=== PATIENT | female | born 1975 | race Caucasian/White ===

== ENCOUNTER → 2017-07-02 13:30 | Outpatient (CLI) | payer MEDICAID, SELFPAY ==
[2017-07-02 13:58] LABS: Basophils # 0.1 K/mm3 (0-0.2); Basophils % 0.8 % (0.1-2.0); Eosinophils # 0.1 K/mm3 (0.0-0.4); Eosinophils % 1.2 % (0.1-12.0); Hemoglobin 15.2 g/dL (12.2-16.2); Lymphocytes # 4.3 K/mm3 (0.7-4.5); Mean Corpuscular HGB Conc 32.3 g/dL (31.8-35.4); Mean Corpuscular Hemoglobin 30.9 pg (27.0-31.2); Mean Corpuscular Volume 95.5 fl (81-99); Mean Platelet Volume 8.8 fl (7.4-10.4); Monocytes # 0.4 K/mm3 (0.1-1.0); Monocytes % 4.6 % (1.7-9.3); Neutrophils # 4.8 K/mm3 (1.8-7.8); Neutrophils % 49.4 % (37.0-80.0); Platelet Count 269 K/mm3 (142-424); Red Blood Count 4.93 M/mm3 (4.20-5.40); Red Cell Distribution Width 13.4 % (11.5-17.5); White Blood Count 9.7 K/mm3 (4.8-10.8)
[2017-07-02 15:13] LABS: Alanine Aminotransferase 15 U/L (12-78); Albumin Level 4.1 gm/dL (3.4-5.0); Albumin/Globulin Ratio 1.3 (1.1-1.8); Alkaline Phosphatase 117 U/L (46-116); Anion Gap 14.1 mEq/L (5-15); Aspartate Amino Transferase 12 U/L (15-37); Bilirubin,Total 0.3 mg/dL (0.2-1.0); Blood Urea Nitrogen 6 mg/dL (7-18); Calcium 9.7 mg/dL (8.5-10.1); Carbon Dioxide 28 mmol/L (21.0-32.0); Chloride 102 mmol/L (98-107); Chol/HDL Ratio 5.4 (1-3.5); Cholesterol 189 mg/dL (140-200); Creatinine,Serum 0.81 mg/dL (0.55-1.02); Estimated Glomerular Filt Rate 78 ml/min (>60); GFR (African American) 95 ML/MIN (>60); Globulin 3.2 gm/dl (1.3-3.2); Glucose 84 mg/dL (74-106); HDL Cholesterol 35 mg/dL (29-89); LDL Cholesterol 124 mg/dL (0-130); Potassium 4.1 mmoL/L (3.5-5.1); Sodium 140 mmol/L (136-145); Total Protein,Serum 7.3 gm/dL (6.4-8.2); Triglycerides 152 mg/dL (30-200); VLDL Cholesterol 30 mg/dL (0-40)
== END ==
PROVIDERS: Visit Provider Nurse Practitioner Family
DX: Z00.00 Encounter for general adult medical examination without abnormal findings (principal); D45 Polycythemia vera
CPT/HCPCS: 36415; 80053; 80061; 85025

== ENCOUNTER → 2017-07-10 08:42 | Outpatient (CLI) | payer MEDICAID, SELFPAY ==
--- NOTE | 2017-07-10 09:00 | MM_ITS ---
MM Dig screening mamm BI w/CAD CAD Screening COMPARISON: None, this is baseline INDICATION: There is a history of breast cancer in patient's paternal grandmother. TECHNIQUE: Standard CC and MLO images were obtained. R2 CAD reviewed. FINDINGS: Prominent diffuse heterogenic fibroglandular densities are seen in both breast somewhat lessening the sensitivity of mammography. There is no suspicious lesion and there are no suspicious microcalcifications. IMPRESSION: Diffusely dense parenchymal pattern with no suspicious lesion seen recommend yearly follow-up BI-RADS Category: 1 Negative RECOMMENDED FOLLOW-UP: 1YR - 1 YEAR FOLLOW-UP (A letter has been sent to the patient regarding results of the study.)
== END ==
PROVIDERS: Family Provider Internal Medicine Adolescent Medicine; PCP Internal Medicine Adolescent Medicine; Visit Provider Nurse Practitioner Family
DX: Z12.31 Encounter for screening mammogram for malignant neoplasm of breast (principal)
CPT/HCPCS: 77067

== ENCOUNTER → 2018-08-12 15:51 | Outpatient (CLI) | payer MEDICAID, SELFPAY ==
[2018-08-12 16:09] LABS: Basophils # 0.1 K/mm3 (0-0.2); Basophils % 0.6 % (0.1-2.0); Eosinophils # 0.1 K/mm3 (0.0-0.4); Eosinophils % 1.1 % (0.1-12.0); Hematocrit 43.6 % (37.0-47.0); Hemoglobin 14.1 g/dL (12.2-16.2); Lymphocytes # 3.9 K/mm3 (0.7-4.5); Lymphocytes % 35.6 % (10-50); Mean Corpuscular HGB Conc 32.3 g/dL (31.8-35.4); Mean Corpuscular Hemoglobin 31.2 pg (27.0-31.2); Mean Corpuscular Volume 96.6 fl (81-99); Mean Platelet Volume 8.5 fl (7.4-10.4); Monocytes # 0.6 K/mm3 (0.1-1.0); Monocytes % 5.2 % (1.7-9.3); Neutrophils # 6.3 K/mm3 (1.8-7.8); Neutrophils % 57.5 % (37.0-80.0); Platelet Count 293 K/mm3 (142-424); Red Blood Count 4.51 M/mm3 (4.20-5.40); Red Cell Distribution Width 13.6 % (11.5-17.5); White Blood Count 10.9 K/mm3 (4.8-10.8)
[2018-08-12 17:13] LABS: Alanine Aminotransferase 45 U/L (12-78); Albumin Level 3.6 gm/dL (3.4-5.0); Albumin/Globulin Ratio 1.2 (1.1-1.8); Alkaline Phosphatase 110 U/L (46-116); Anion Gap 13.3 mEq/L (5-15); Aspartate Amino Transferase 26 U/L (15-37); Bilirubin,Total 0.2 mg/dL (0.2-1.0); Blood Urea Nitrogen 7 mg/dL (7-18); Calcium 9.3 mg/dL (8.5-10.1); Carbon Dioxide 27 mmol/L (21.0-32.0); Chloride 102 mmol/L (98-107); Chol/HDL Ratio 6.3 (1-3.5); Cholesterol 228 mg/dL (140-200); Creatinine,Serum 0.83 mg/dL (0.55-1.02); Estimated Glomerular Filt Rate 76 ml/min (>60); GFR (African American) 92 ML/MIN (>60); Globulin 3.1 gm/dl (1.3-3.2); Glucose 82 mg/dL (74-106); HDL Cholesterol 36 mg/dL (29-89); LDL Cholesterol 158 mg/dL (0-130); Potassium 4.3 mmoL/L (3.5-5.1); Sodium 138 mmol/L (136-145); Total Protein,Serum 6.7 gm/dL (6.4-8.2); Triglycerides 171 mg/dL (30-200); VLDL Cholesterol 34 mg/dL (0-40)
== END ==
PROVIDERS: Visit Provider Nurse Practitioner Family
DX: Z00.00 Encounter for general adult medical examination without abnormal findings (principal); D45 Polycythemia vera; F17.200 Nicotine dependence, unspecified, uncomplicated
CPT/HCPCS: 36415; 80053; 80061; 85025

== ENCOUNTER → 2018-09-14 12:43 | Outpatient (CLI) | payer MEDICAID, SELFPAY ==
[2018-09-14 13:07] LABS: Basophils # 0.1 K/mm3 (0-0.2); Basophils % 0.5 % (0.1-2.0); Eosinophils # 0.1 K/mm3 (0.0-0.4); Eosinophils % 0.5 % (0.1-12.0); Hematocrit 43.3 % (37.0-47.0); Hemoglobin 13.9 g/dL (12.2-16.2); Lymphocytes % 25.8 % (10-50); Mean Corpuscular Volume 96.8 fl (81-99); Mean Platelet Volume 8.4 fl (7.4-10.4); Monocytes # 0.6 K/mm3 (0.1-1.0); Monocytes % 5.1 % (1.7-9.3); Neutrophils % 68.1 % (37.0-80.0); Platelet Count 266 K/mm3 (142-424); Red Blood Count 4.47 M/mm3 (4.20-5.40); Red Cell Distribution Width 13.5 % (11.5-17.5); White Blood Count 11.8 K/mm3 (4.8-10.8)
[2018-09-14 14:36] LABS: Anion Gap 13.9 mEq/L (5-15); Blood Urea Nitrogen 11 mg/dL (7-18); Carbon Dioxide 24 mmol/L (21.0-32.0); Chloride 105 mmol/L (98-107); Creatinine,Serum 0.94 mg/dL (0.55-1.02); Estimated Glomerular Filt Rate 66 ml/min (>60); GFR (African American) 79 ML/MIN (>60); Glucose 79 mg/dL (74-106); Potassium 3.9 mmoL/L (3.5-5.1); Sodium 139 mmol/L (136-145)
== END ==
PROVIDERS: Visit Provider Otolaryngology
DX: J34.2 Deviated nasal septum (principal); S02.2XXA Fracture of nasal bones, initial encounter for closed fracture
CPT/HCPCS: 36415; 80048; 85025; 93005

== ENCOUNTER → 2018-09-15 16:13 | Outpatient (CLI) | payer MEDICAID, SELFPAY ==
--- NOTE | 2018-09-15 16:15 | MM_ITS ---
MM Dig screening mamm BI w/CAD CAD Screening COMPARISON: Digital mammograms with CAD 07/10/2017 INDICATION: There is no personal or family history of breast cancer TECHNIQUE: Standard CC and MLO images were obtained. R2 CAD reviewed. FINDINGS: Prominent heterogenic fibroglandular densities are seen throughout both breasts. The findings are bilateral and symmetrical. There is no suspicious lesion and there are no suspicious microcalcifications. IMPRESSION: Moderately and diffusely dense parenchymal pattern with no suspicious lesion seen BI-RADS Category: 1 Negative RECOMMENDED FOLLOW-UP: 1YR - 1 YEAR FOLLOW-UP (A letter has been sent to the patient regarding results of the study.)
== END ==
PROVIDERS: PCP Nurse Practitioner Family; Visit Provider Nurse Practitioner Family
DX: Z12.31 Encounter for screening mammogram for malignant neoplasm of breast (principal)
CPT/HCPCS: 77067

== ENCOUNTER → 2018-09-23 09:39 | Outpatient (CLI) | payer MEDICAID, SELFPAY ==
--- NOTE | 2018-09-23 09:40 | FL_ITS ---
FL upper GI w air HISTORY: Pain, dysphasia ITS.REASON: dysphagia ORDERING PHYSICIAN: Wang Monteiro MD PATIENT AGE: 42 years Comparison: None FINDINGS: The esophagus, stomach, and duodenum have an unremarkable appearance. There is no evidence of hiatal hernia. No ulcer or mass evident. No mucosal abnormalities apparent. There is normal peristalsis. The duodenal C-loop is nondisplaced.. There is mild gastroesophageal reflux noted. There is mild prominence of the gastric rugal folds nonspecific but may be seen with gastritis FLUOROSCOPY TIME : 57 seconds. IMPRESSION: 1. Prominent gastric rugal folds which may be seen with gastritis. 2. Mild GE reflux
== END ==
PROVIDERS: PCP Internal Medicine Adolescent Medicine; Visit Provider Surgery
DX: R10.13 Epigastric pain (principal); R12 Heartburn; R13.10 Dysphagia, unspecified
CPT/HCPCS: 74247

== ENCOUNTER 2019-10-04 07:47 | Emergency (ER) | payer OTHER, SELFPAY ==
[2019-10-04 07:57] VITALS: BP 146/82; PULSE 80; RESP 18; O2SAT 100; BMI 26.5
--- NOTE | 2019-10-04 08:08 | HMH.EDGENADL ---
ED Disposition Clinical Impression: Muscle strain Disposition: Home, Self-Care Condition on Discharge: Good Instructions: DI for Musculoskeletal Pain Referrals: Dewayne Jeffery MD [Primary Care Provider] - 7-14 days - Critical Care Critical Care Time: No Attestation: On 10/04/19, the high probability of a clinically significant, sudden or life threatening deterioration of the following system(s) required my full and direct attention, intervention and personal management. The time I documented below is in addition to time spent performing reported procedures but includes the following listed in this critical care notation. Medical Decision Making - Medical Records Medical records reviewed: Yes: I reviewed the patient's medical records. - Srikanth Inquiry Pt receiving controlled substance: No Vital Signs: 10/04/19 07:57 Pulse Rate [Radial] 80 Respiratory Rate 18 Blood Pressure [Right Arm] 146/82 H Blood Pressure Mean [Right Arm] 103 Blood Pressure Source [Right Arm] Automatic Cuff Blood Pressure Position [Right Arm] Sitting 02 Sat by Pulse Oximetry 100 Oxygen Delivery Method Room Air Medical Decision Narrative: Patient with muscle strain after utilizing the mop at work a few days ago. Recommended symptomatic treatment including Tylenol, ibuprofen. She has a follow-up appointment with her primary care provider early next week and I encouraged her to return for any worsening symptoms. She is not taking any blood thinners and has no flank pain, unlikely hematoma or significant muscular bleed. While she reports tenderness in her abdomen, she is nontender on exam. No McBurney's point tenderness. She denies any vaginal or urinary symptoms that would suggest PID, UTI, TOA. Discharged home. General Adult HPI - General Chief complaint: PAIN Stated complaint: right sided pelvic pain Time Seen by Provider: 10/04/19 08:08 Mode of Arrival: Ambulatory Source of Information: Patient Limitations: No Limitations Description of Symptoms (Recalled from ER Triage Doc. by RN): Per Patient while at work she was mopping the floor and pushed down on the handle and now has right sided muscle pain. - History of Present Illness HPI narrative: This is a 43-year-old female who presents to the emergency department for evaluation of right-sided mid to lower abdominal pain for the last several days. Pain is worse with movement, better with lying still. She states that she was mopping at work a few days ago, pulled down on the mop handle and subsequently had right mid to lower abdominal pain. She has been trying to use Tylenol and ibuprofen with some relief of symptoms. She denies any dysuria, vaginal discharge or flank pain. No hematuria. She does not take any blood thinners, does take a baby aspirin daily. No nausea, vomiting or fever. - Related Data Home Medications Medication Instructions Recorded Confirmed Aspirin 81 mg PO DAILY 05/29/17 10/12/18 Rabeprazole Sodium 20 mg PO DAILY 09/15/18 10/11/18 Previous Rx's Medication Instructions Recorded ciprofloxacin 0.3 %-dexamethasone 4 drp OTIC BID 98 Days #7.5 ml 08/30/18 0.1 % ear drops,suspension Allergies Allergy/AdvReac Type Severity Reaction Status Date / Time No Known Allergies Allergy Verified 10/11/18 13:53 [facility] History - Hepatitis A Screen Drug use history?: No High risk sexual behaviors?: No History of sexually transmitted infection?: No Currently employed?: No Childcare worker?: No Do you have indoor plumbing?: Yes Do you have electricity?: Yes Attestation statement:: This patient has been screened for Hepatitis A risk factors. I have reviewed the patient's past medical history: Yes Medical History: Reports:: Asthma, Chronic Obstructive Pulmonary Disease (COPD), Gastroesophageal Reflux Disease(GERD) Denies:: Cancer, Diabetes Mellitus Type 1, Diabetes Mellitus Type 2, Internal Pacemaker, Lung Disease, MRSA, Seizures Other Medical
[2019-10-04 08:15] VITALS: BP 146/82; PULSE 80; RESP 18; TEMP 36.7; O2SAT 100
== END 2019-10-04 08:17 | disposition home or self-care (01) ==
PROVIDERS: Emergency Provider Emergency Medicine; PCP Internal Medicine Adolescent Medicine
DX: S39.012A Strain of muscle, fascia and tendon of lower back, initial encounter (principal); X50.3XXA Overexertion from repetitive movements, initial encounter; Y92.89 Other specified places as the place of occurrence of the external cause; J44.9 Chronic obstructive pulmonary disease, unspecified; K21.9 Gastro-esophageal reflux disease without esophagitis; Z90.09 Acquired absence of other part of head and neck; Z87.891 Personal history of nicotine dependence
CPT/HCPCS: 99281

== ENCOUNTER → 2019-10-11 17:08 | Outpatient (CLI) | payer OTHER, SELFPAY ==
[2019-10-11 17:50] LABS: Basophils # 0.1 K/mm3 (0-0.2); Basophils % 0.8 % (0.1-2.0); Eosinophils # 0.1 K/mm3 (0.0-0.4); Eosinophils % 0.9 % (0.1-12.0); Hematocrit 39.5 % (37.0-47.0); Hemoglobin 13.3 g/dL (12.2-16.2); Lymphocytes # 3.6 K/mm3 (0.7-4.5); Lymphocytes % 31.9 % (10-50); Mean Corpuscular HGB Conc 33.8 g/dL (31.8-35.4); Mean Corpuscular Volume 91.8 fl (81-99); Mean Platelet Volume 8.8 fl (7.4-10.4); Monocytes # 0.6 K/mm3 (0.1-1.0); Monocytes % 5.2 % (1.7-9.3); Neutrophils # 6.9 K/mm3 (1.8-7.8); Neutrophils % 61.2 % (37.0-80.0); Platelet Count 248 K/mm3 (142-424); Red Cell Distribution Width 13.8 % (11.5-17.5); White Blood Count 11.3 K/mm3 (4.8-10.8)
[2019-10-11 20:22] LABS: Alanine Aminotransferase 16 U/L (12-78); Albumin Level 4.5 g/dl (3.5-5.0); Albumin/Globulin Ratio 1.7 (1.1-1.8); Alkaline Phosphatase 98 U/L (38-126); Anion Gap 15.2 mEq/L (5-15); Aspartate Amino Transferase 24 U/L (14-36); Bilirubin,Total 0.2 mg/dl (0.2-1.3); Blood Urea Nitrogen 9 mg/dl (7-17); Calcium 9.9 mg/dl (8.4-10.2); Carbon Dioxide 27 mmol/L (22.0-30.0); Chloride 100 mmol/L (98-107); Chol/HDL Ratio 3.4 (1-3.5); Cholesterol 162 mg/dl (140-200); Estimated Glomerular Filt Rate 79 ml/min (>60); GFR (African American) 95 ML/MIN (>60); Globulin 2.6 g/dL (1.3-3.2); Glucose 91 mg/dl (74-100); HDL Cholesterol 48 mg/dl (40-60); Potassium 4.2 mmoL/L (3.5-5.1); Sodium 138 mmol/L (136-145); Total Protein,Serum 7.1 g/dl (6.3-8.2); Triglycerides 119 mg/dl (30-150); VLDL Cholesterol 24 mg/dL (0-40)
[2019-10-11 20:33] LABS: Direct LDL Cholesterol 74.71 mg/dL (100-129)
[2019-10-11 20:44] LABS: Free Thyroxine Index 2.9 ug/dL (5.93-13.13); T4 (Thyroxine) 8.6 ug/dl (5.53-11.0); Triiodothryronine (T3) Uptake 34 % (23.5-40.5)
[2019-10-11 20:58] LABS: Thyroid Stimulating Hormone 3.16 uIU/mL (0.465-4.68)
[2019-10-13 17:27] LABS: Estradiol 49.9 pg/mL (.); FSH 12.1 mIU/mL (.); LH 7.6 mIU/mL (.)
== END ==
PROVIDERS: Visit Provider Nurse Practitioner Obstetrics & Gynecology
DX: Z01.419 Encounter for gynecological examination (general) (routine) without abnormal findings (principal); R53.82 Chronic fatigue, unspecified
CPT/HCPCS: 36415; 80053; 80061; 82533; 82670; 83001; 83002; 84436; 84443; 84479; 85025

== ENCOUNTER → 2019-11-07 09:36 | Outpatient (CLI) | payer OTHER, SELFPAY ==
--- NOTE | 2019-11-07 09:40 | MM_ITS ---
PROCEDURE: MM DIG SCREENING MAMM BI W/CAD Digital Breast Tomosynthesis Included CLINICAL INDICATION: screening xmg History of breast cancer patient's paternal grandmother. COMPARISON: MG SCBI MM Dig screening mamm BI w/CAD from 07/10/2017 MG DIG MAMM-SCREEN JULIAN from 09/15/2018 TECHNIQUE: Standard CC and MLO images and 3D Tomosynthesis was obtained. R2 CAD reviewed. FINDINGS: Cysts and somewhat heterogenic fibroglandular densities are seen throughout both breasts. Raffy images are most helpful this type of dense breast parenchyma. There is a dominant well-defined spherical lesions central portion right breast with relatively smooth borders likely representing a cyst. There is a similar but smaller lesion just deep to the nipple right breast. Recommend the patient return for ultrasound for additional evaluation. IMPRESSION: Diffusely dense parenchymal pattern with possible new lesions right breast BI-RAD Category: 0 Need Additional Imaging Evaluation FOLLOW-UP: IMM Immediate Follow-up Recommended (A letter has been sent to the patient regarding results of the study.) Dictated by: Dr. Christian Mendiola MD 11/09/2019 08:53 Dr. Christian Mendiola MD in [place] 11/09/2019 08:53
== END ==
PROVIDERS: PCP Internal Medicine Adolescent Medicine; Visit Provider Nurse Practitioner Obstetrics & Gynecology
DX: Z12.31 Encounter for screening mammogram for malignant neoplasm of breast (principal)
CPT/HCPCS: 77063; 77067

== ENCOUNTER → 2019-11-22 10:52 | Outpatient (CLI) | payer OTHER, SELFPAY ==
[2019-11-23 11:12] LABS: Hep A Ab, IgM Negative (Negative); Hepatitis B Core Antibody IgM Negative (Negative); Hepatitis B Surface Antigen Negative (Negative)
[2019-11-23 13:20] LABS: HIV Screen 4th Generation wRfx Non Reactive (Non Reactive); HSV 1 IgG, Type Spec <0.91 index (0.00-0.90); HSV 2 IgG, Type Spec <0.91 index (0.00-0.90); Hepatitis C Antibody <0.1 s/co ratio (0.0-0.9)
[2019-11-23 15:50] LABS: Rapid Plasma Reagin Ab Titer Non Reactive (NonRea<1:1)
[2019-11-25 09:35] LABS: Neisseria gonorrhoeae, NAA Negative (Negative)
== END ==
PROVIDERS: Visit Provider Nurse Practitioner Obstetrics & Gynecology
DX: Z72.51 High risk heterosexual behavior (principal)
CPT/HCPCS: 36415; 80074; 86592; 86695; 86703; 86790; 87491; 87591; G0432

== ENCOUNTER → 2019-11-23 15:15 | Outpatient (CLI) | payer OTHER, SELFPAY ==
--- NOTE | 2019-11-23 15:15 | US_ITS ---
PROCEDURE: US BREAST RT COMPLETE CLINICAL INDICATION: Abnormal findings of the right breaston recent xmg COMPARISON: MG DIG MAMM-SCREEN JULIAN from 09/15/2018 MG MM DIG SCREENING MAMM BI W/CAD from 11/07/2019 FINDINGS: At 6 o'clock there is a 5 mm cyst. At 10 o'clock there is a 9 mm cyst. Also at 10 o'clock there is a 2.5 by 2 x 0.8 cm cyst. At 11 o'clock near the nipple there is a 2 cm cyst. No solid lesions are evident. IMPRESSION: There are multiple cysts in the right breast which likely correspond to the mammographic abnormality. Recommend six-month follow-up ultrasound and mammogram to confirm stability. BI-RADS category 3 probably benign. Recommend six-month mammographic and sonographic follow-up Dictated by: Gary Joe MD 11/28/2019 10:13 Gary Joe MD in [place] 11/28/2019 10:13
[2019-11-23 16:29] LABS: Basophils # 0.1 K/mm3 (0-0.2); Basophils % 0.7 % (0.1-2.0); Eosinophils # 0.1 K/mm3 (0.0-0.4); Eosinophils % 1.1 % (0.1-12.0); Hematocrit 42.4 % (37.0-47.0); Hemoglobin 13.5 g/dL (12.2-16.2); Lymphocytes # 3.6 K/mm3 (0.7-4.5); Lymphocytes % 38.3 % (10-50); Mean Corpuscular HGB Conc 31.9 g/dL (31.8-35.4); Mean Corpuscular Volume 94.3 fl (81-99); Mean Platelet Volume 8.5 fl (7.4-10.4); Monocytes # 0.5 K/mm3 (0.1-1.0); Monocytes % 5.3 % (1.7-9.3); Neutrophils # 5.1 K/mm3 (1.8-7.8); Neutrophils % 54.5 % (37.0-80.0); Platelet Count 234 K/mm3 (142-424); Red Cell Distribution Width 13.7 % (11.5-17.5); White Blood Count 9.3 K/mm3 (4.8-10.8)
[2019-11-23 17:12] LABS: Chloride 103 mmol/L (98-107); Potassium 4.4 mmoL/L (3.5-5.1); Sodium 138 mmol/L (136-145)
[2019-11-23 17:15] LABS: Anion Gap 12.4 mEq/L (5-15); Blood Urea Nitrogen 13 mg/dl (7-17); Calcium 9.9 mg/dl (8.4-10.2); Carbon Dioxide 27 mmol/L (22.0-30.0); Estimated Glomerular Filt Rate 78 ml/min (>60); GFR (African American) 95 ML/MIN (>60); Glucose 90 mg/dl (74-100)
[2019-11-23 17:29] LABS: Coronavirus 19 IgG Antibody Negative (Negative); Coronavirus 19 IgM Antibody Negative (Negative)
[2019-11-23 18:56] LABS: HCG Qualitative, Serum Negative (Negative)
== END ==
PROVIDERS: PCP Internal Medicine Adolescent Medicine; Visit Provider Nurse Practitioner Obstetrics & Gynecology
DX: Z01.89 Encounter for other specified special examinations (principal); N89.8 Other specified noninflammatory disorders of vagina; R92.8 Other abnormal and inconclusive findings on diagnostic imaging of breast
CPT/HCPCS: 36415; 76641; 80048; 84703; 85025; 86328

== ENCOUNTER 2019-11-25 06:56 | Day surgery (SDC) | payer OTHER, SELFPAY ==
[2019-11-23 10:50] VITALS: BMI 26.3
[2019-11-25] VITALS (9 sets, daily range): BP systolic 111–122; BP diastolic 73–86; PULSE 59–76; RESP 12–20; TEMP 36.1–36.6; O2SAT 97–99
--- NOTE | 2019-11-25 09:36 | P.PN_ITS ---
[facility] Anesthesia Checklist - Structural Data Admitted From: Home Planned Operative Procedure/s: excision vaginal skin tags Consent for Planned Operative Procedure(s) Verified: Yes - Additional verifications Anesthesia Reactions: No Hx Blood Transfusions: No Blood Transfusion Reaction: No - Airway Assessment C-Spine Mobility Assessed: Yes TMJ Mobility Assessed: Yes Dentition: Poor Dentition - Neurological Assessment Level of Consciousness: Awake, Alert, Appropriate - Anesthesia Plan Anesthesia Risk discussed: Yes Anesthesia Plan: Verified ASA Class: II Anesthesia Type: General [facility] History I have reviewed the patient's past medical history: Yes Medical History: Reports:: Asthma, Chronic Obstructive Pulmonary Disease (COPD), Gastroesophageal Reflux Disease(GERD) Denies:: Cancer, Diabetes Mellitus Type 1, Diabetes Mellitus Type 2, Internal Pacemaker, Lung Disease, MRSA, Seizures *Have you ever received a pneumonia vaccine?: No *Have you received a flu vaccine this season?: No Other Medical History: Reports: Other. Denies: Blood Transfusion Reaction Anesthesia experience/problems:: none Laterality Cases: Bilateral: Myringotomy (Ear Tubes), Tonsillectomy, Other Other Surgeries: Yes: Cholecystectomy, Diagnostic Lap, Hysterectomy-Partial, Other. No: Pacemaker Amputation: No Fractures: No - *Social History Last grade of school completed: GED Smoking Status: Never smoker Tobacco Type: cigarettes Alcohol Intake: never Alcohol Intake Frequency:: other Substance Use Type: denies use *Occupational Status:: employed Housing: house Household Members: family *Travel in the last 8 weeks: None Family Hx:: Hypertension, Hyperlipidemia
--- NOTE | 2019-11-25 09:41 | HMH.OPNOTE ---
Date of procedure: 11/25/19 Pre-op Diagnosis:: Vaginal skin tags Post-op Diagnosis:: Vaginal skin tags Procedure performed:: Removal of inflamed vaginal skin tags Surgeon:: Ramesh Tolentino MD COPYRIGHT CLERK:: Michael Lew Anesthesia: LMA Estimated blood loss (mL): 10 Clinical Note:: She is a 44-year-old lady who complains of extremely tender vaginal skin tags. They hurt during intercourse. On examination they were quite firm consistent with inflammatory scarred skin tags from the hymenal ring. After having discussed the risks and benefits we elected to remove these. Operative findings:: She had a number of firm small nodules Operative note:: She was taken the operating room where LMA anesthesia was found be adequate. She is prepped and draped in the normal sterile fashion lithotomy position. I grasped the posterior vagina with 2 Allis clamps and was able to open up the posterior vaginal orifice. Then using small pickups with teeth I was able to grasp the nodules and using cautery on cut mode I removed approximately 10 small 1 to 2 mm firm skin nodules. She did not require any sutures. I then injected approximately 10 cc of 0.25% ropivacaine subcutaneously in the posterior aspect of the vagina. She tolerated procedure well and was taken recovery room in excellent condition. All sponge, instrument counts were correct. The estimated blood loss was approximately 10 cc. Condition: stable Disposition: PACU Specimens:: None since these were just vaginal skin tags. Complications:: None
--- NOTE | 2019-11-25 09:50 | P.PN_ITS ---
[facility] Anesthesia Record Part I Intake, IV Amount: 1,200 Estimated blood loss (mL): 0 Urine output (mL): 0 Blood Pressure: 121/86 SaO2: 97 Pulse Rate: 73 Respiratory Rate: 12 Temperature: 97.5 F Patient is:: Drowsy, Oral/Nasal airway Stable to PACU at:: 09:50
--- NOTE | 2019-11-25 14:10 | HMH.ANESII ---
[facility] Anesthesia Record Part II Discharge Time: 10:20 Destination: [facility] PACU nurse assessment reviewed?: Yes Patient Condition:: Good Anesthesia Complications:: None Swallowing reflex intact?: Yes Cyanosis?: Yes Blood Pressure: 116/79 Pulse Rate: 70 Temperature: 97.9 F Mental Status: Alert & Oriented Pain level:: 0 Nausea and/or vomitting:: None Intake, IV Amount: 1,000
== END 2019-11-25 10:59 | disposition home or self-care (01) ==
LOC: OR 06:57
PROVIDERS: PCP Internal Medicine Adolescent Medicine; Visit Provider Nurse Practitioner Obstetrics & Gynecology
PROC: (CPT 11200; principal; 2019-11-25 09:00)
DX: L91.8 Other hypertrophic disorders of the skin (principal); N90.89 Other specified noninflammatory disorders of vulva and perineum; Z79.82 Long term (current) use of aspirin; Z79.899 Other long term (current) drug therapy; J44.9 Chronic obstructive pulmonary disease, unspecified; K21.9 Gastro-esophageal reflux disease without esophagitis; Z82.49 Family history of ischemic heart disease and other diseases of the circulatory system; Z83.438 Family history of other disorder of lipoprotein metabolism and other lipidemia
CPT/HCPCS: 11200; 96374; J2405

== ENCOUNTER → 2020-04-21 08:17 | Outpatient (CLI) | payer OTHER, SELFPAY ==
--- NOTE | 2020-04-21 | XR_ITS ---
PROCEDURE: XR FOOT WT BEARING RT 3V CLINICAL INDICATION: BUNION OF RT FOOT COMPARISON: No exams were available for comparison FINDINGS: No fracture or dislocation. No lytic or blastic change. There is normal mineralization. There are mild hypertrophic changes at distal aspect of the 2nd metatarsal consistent with bunion formation. There is flattening of the head of 3rd metatarsal consistent with avascular necrosis. Other findings:None. IMPRESSION: 1. Bunion formation at the distal 1st metatarsal. 2. 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
--- NOTE | 2020-04-21 | XR_ITS ---
PROCEDURE: XR FOOT WT BEARING LT 3V CLINICAL INDICATION: BUNION OF LEFT FOOT COMPARISON: No exams were available for comparison FINDINGS: Hallux valgus with osteoarthritis of the 1st MTP joint and bunion formation at the distal aspect of the 1st metatarsal. No fracture or dislocation. Normal alignment. Hammertoe deformity noted of the 2nd toe. Other findings:None. IMPRESSION: Hallux valgus Hammertoe 2nd toe Dictated by: Gary Joe MD 04/21/2020 10:16 Gary Joe MD in [place] 04/21/2020 10:16
[2020-04-21 08:22] LABS: Microscopic, Urine URINE MICROSCOPIC (MICROSCOPIC)
[2020-04-21 08:34] LABS: Basophils # 0.1 K/mm3 (0-0.2); Basophils % 1.1 % (0.1-2.0); Eosinophils # 0.2 K/mm3 (0.0-0.4); Eosinophils % 2.9 % (0.1-12.0); Hematocrit 42.4 % (37.0-47.0); Hemoglobin 13.8 g/dL (12.2-16.2); Lymphocytes # 2.9 K/mm3 (0.7-4.5); Lymphocytes % 36.9 % (10-50); Mean Corpuscular HGB Conc 32.6 g/dL (31.8-35.4); Mean Corpuscular Hemoglobin 30.9 pg (27.0-31.2); Mean Corpuscular Volume 94.9 fl (81-99); Mean Platelet Volume 8.8 fl (7.4-10.4); Monocytes # 0.4 K/mm3 (0.1-1.0); Monocytes % 5.1 % (1.7-9.3); Neutrophils # 4.2 K/mm3 (1.8-7.8); Platelet Count 265 K/mm3 (142-424); Red Blood Count 4.47 M/mm3 (4.20-5.40); Red Cell Distribution Width 13.5 % (11.5-17.5); White Blood Count 7.8 K/mm3 (4.8-10.8)
[2020-04-21 08:41] LABS: Appearance,Urine CLEAR (Clear); Bilirubin,Urine Negative (Negative); Blood, Urine Negative (Negative); Color,Urine YELLOW (Yellow); Glucose,Urine (UA) Negative (Negative); Ketones,Urine Negative (Negative); Leukocyte Esterase,Urine Negative (Negative); Nitrate,Urine Negative (Negative); Protein,Urine Negative (Negative); Urobilinogen,Urine 0.2 EU/dl (0.2)
[2020-04-21 09:06] LABS: Squamous Epithelial Cell,Urine Occasional #/hpf (0-5)
[2020-04-21 09:10] LABS: Alanine Aminotransferase 16 U/L (12-78); Albumin Level 4.1 g/dl (3.5-5.0); Albumin/Globulin Ratio 1.4 (1.1-1.8); Alkaline Phosphatase 82 U/L (38-126); Anion Gap 10.4 mEq/L (5-15); Aspartate Amino Transferase 23 U/L (14-36); Bilirubin,Total 0.4 mg/dl (0.2-1.3); Blood Urea Nitrogen 16 mg/dl (7-17); Calcium 9.5 mg/dl (8.4-10.2); Carbon Dioxide 28 mmol/L (22.0-30.0); Chloride 106 mmol/L (98-107); Chol/HDL Ratio 3.2 (1-3.5); Cholesterol 162 mg/dl (140-200); Estimated Glomerular Filt Rate 68 ml/min (>60); GFR (African American) 83 ML/MIN (>60); Globulin 2.9 g/dL (1.3-3.2); Glucose 90 mg/dl (74-100); HDL Cholesterol 51 mg/dl (40-60); Potassium 4.4 mmoL/L (3.5-5.1); Sodium 140 mmol/L (136-145); Triglycerides 72 mg/dl (30-150); Uric Acid 3.6 mg/dl (2.5-6.2); VLDL Cholesterol 14 mg/dL (0-40)
[2020-04-21 09:22] LABS: Direct LDL Cholesterol 74.63 mg/dL (100-129)
[2020-04-21 09:27] LABS: 25-OH Vitamin D, Total 16.6 ng/mL (30-100)
[2020-04-21 09:42] LABS: Thyroid Stimulating Hormone 2.78 uIU/mL (0.465-4.68)
[2020-04-21 10:43] LABS: Vitamin B12 338 pg/mL (239-931)
== END ==
PROVIDERS: Visit Provider Nurse Practitioner Family
DX: R53.81 Other malaise (principal); E78.2 Mixed hyperlipidemia; E55.9 Vitamin D deficiency, unspecified; M79.672 Pain in left foot; M21.612 Bunion of left foot; M21.611 Bunion of right foot; M94.9 Disorder of cartilage, unspecified; M89.9 Disorder of bone, unspecified; R30.0 Dysuria
CPT/HCPCS: 36415; 73630; 80053; 80061; 81001; 82306; 82607; 84443; 84550; 85025

== ENCOUNTER → 2020-05-30 13:09 | Outpatient (CLI) | payer OTHER, SELFPAY ==
--- NOTE | 2020-05-30 13:15 | XR_ITS ---
PROCEDURE: XR DEXA AXIAL SKELETON CLINICAL HISTORY: vitamin deficiency, pain COMPARISON: No exams were available for comparison FINDINGS: The right hip BMD is 0.700 with a T-score of -1.3. The left hip BMD is 0.789 with a T-score of -1.3. The lumbar spine BMD is 1.054 with a T-score of 0.1. IMPRESSION: This patient is considered osteopenic according to the World Health Organization criteria. Bone density is between 10 and 25 percent below young normal. Fracture risk is moderate. Treatment is advised. Based on these results a follow-up exam is recommended in 2 year. Dictated by: Gary Joe MD 05/30/2020 20:17 Gary Joe MD in [place] 05/31/2020 10:42
== END ==
PROVIDERS: PCP Internal Medicine Adolescent Medicine; Visit Provider Podiatrist
DX: E55.9 Vitamin D deficiency, unspecified (principal); M87.076 Idiopathic aseptic necrosis of unspecified foot; M85.89 Other specified disorders of bone density and structure, multiple sites
CPT/HCPCS: 77080

== ENCOUNTER → 2020-06-04 13:52 | Outpatient (CLI) | payer OTHER, SELFPAY ==
--- NOTE | 2020-06-04 13:52 | MM_ITS ---
PROCEDURE: MM DIG MAMM DX UNILAT RT CAD Digital Breast Tomosynthesis Included CLINICAL INDICATION: 6 month follow up to abnormal xmg COMPARISON: MG MM DIG SCREENING MAMM BI W/CAD from 11/07/2019 US US BREAST RT COMPLETE from 06/04/2020 TECHNIQUE: Standard CC and MLO images and 3D Tomosynthesis was obtained. R2 CAD reviewed. FINDINGS: Thank densities are again seen in the breast. There is a dominant spherical density upper portion best seen on the MLO view but seen on the CC radha views as well. Ultrasound performed the same date shows a dominant hypoechoic benign-appearing cyst at the 10 to 11 o'clock position outer breast measuring 1.9 x 1.7 by 2.1 cm with acoustic enhancement beneath this cystic lesion. If this lesion is symptomatic ultrasound guided cyst range could be offered. Becoming there are smaller hypoechoic cystic-appearing lesions at the 10 o'clock position mid breast. There is a normal appearing node in the axilla. There are no suspicious microcalcifications. IMPRESSION: Stable cystic-appearing lesions in with no suspicious lesions seen BI-RAD Category: 2 Benign Finding(s) FOLLOW-UP: 1YR 1 Year Follow-up (A letter has been sent to the patient regarding results of the study.) Dictated by: Dr. Christian Mendiola MD 06/05/2020 12:54 Dr. Christian Mendiola MD in [place] 06/05/2020 12:54
--- NOTE | 2020-06-04 13:52 | US_ITS ---
PROCEDURE: US BREAST RT COMPLETE CLINICAL INDICATION: abnormal xmg COMPARISON: US US BREAST RT COMPLETE from 11/23/2019 FINDINGS: There is a dominant hypoechoic cystic appearing lesion at the 10 o'clock position which may have shown slight interval increase in size from the previous ultrasound study none measuring 2.1 by 1.9 x 1.7 cm. It shows acoustic enhancement beneath the lesion. There was somewhat smaller but hypoechoic cystic lesion at the 10 o'clock position mid breast. There are normal appearing nodes in the axilla. IMPRESSION: Benign-appearing cystic lesions as noted, if the larger of the cystic lesions becomes symptomatic ,cyst drainage could be offered Dictated by: Dr. Christian Mendiola MD 06/05/2020 12:58 Dr. Christian Mendiola MD in [place] 06/05/2020 12:58
== END ==
PROVIDERS: PCP Internal Medicine Adolescent Medicine; Visit Provider Nurse Practitioner Obstetrics & Gynecology
DX: R92.8 Other abnormal and inconclusive findings on diagnostic imaging of breast (principal)
CPT/HCPCS: 76641; 77061; 77065; G0279

== ENCOUNTER → 2020-06-13 12:51 | Outpatient (CLI) | payer OTHER, SELFPAY ==
--- NOTE | 2020-06-13 12:51 | US_ITS ---
PROCEDURE: US FNA BREAST CLINICAL INDICATION: US Guided Cyst Aspiration RT Breast COMPARISON: US US BREAST RT COMPLETE from 06/04/2020 FINDINGS: Following obtaining informed consent and time-out procedure under aseptic conditions and local anesthesia with 1 percent buffered lidocaine, 20 gauge spinal needle was inserted into the dominant cyst at 10 o'clock and approximately 5 mL grade fluid was aspirated. The cyst was nearly completely aspirated. The patient tolerated the procedure well without evidence of immediate complication. Cytology: Negative for malignant cells. IMPRESSION: Uneventful ultrasound-guided cyst aspiration of the right breast Dictated by: Gary Joe MD 06/21/2020 17:29 Gary Joe MD in [place] 06/21/2020 17:29
--- NOTE | 2020-06-13 13:27 | MM_ITS ---
PROCEDURE: MM DIG MAMM DX UNILAT RT CAD Digital Breast Tomosynthesis Included CLINICAL INDICATION: POST CYST ASPIRATION COMPARISON: MG MM DIG SCREENING MAMM BI W/CAD from 09/15/2018 MG MM DIG SCREENING MAMM BI W/CAD from 11/07/2019 MG MM DIG MAMM DX UNILAT RT CAD from 06/04/2020 US US BREAST RT COMPLETE from 06/04/2020 US US FNA BREAST from 06/13/2020 TECHNIQUE: Standard CC and MLO images performed of the right breast following cyst aspiration.. FINDINGS: Average to dense fibroglandular tissue. Previously noted 2 cm nodule in the upper aspect of the left breast is no longer apparent. There is some central increased density of the breast which could be due to an additional cyst as the patient has multiple breast cysts. No suspicious abnormalities are evident. IMPRESSION: BI-RAD Category: 2 Benign Finding(s) FOLLOW-UP: Six-month follow-up suggested per routine post biopsy/aspiration protocol. (A letter has been sent to the patient regarding results of the study.) Dictated by: Gary Joe MD 06/21/2020 17:27 Gary Joe MD in [place] 06/21/2020 17:27
== END ==
PROVIDERS: PCP Internal Medicine Adolescent Medicine; Visit Provider Nurse Practitioner Obstetrics & Gynecology
DX: N60.01 Solitary cyst of right breast
CPT/HCPCS: 10005; 77061; 77065; G0279

== ENCOUNTER 2020-12-25 15:50 | Emergency (ER) | payer OTHER, SELFPAY ==
[2020-12-25 15:50] VITALS: BP 116/79; PULSE 65; RESP 20; TEMP 36.8; O2SAT 99; BMI 26.3
--- NOTE | 2020-12-25 17:42 | HMH.EDUTC ---
[facility] Disposition Clinical Impression: Vomiting and diarrhea Disposition: Home, Self-Care Condition on Discharge: Good Instructions: Diarrhea, DI for Vomiting -- Adult Additional Instructions: Drink extra fluids with and between meals. If you have difficulty drinking, try very small amounts of water or suck on ice chips. ? Avoid fruit juices, as these do not replace minerals and can actually increase diarrhea. ? Children and adults can use sports drinks to replenish electrolytes. Younger children and infants should use products formulated for children, like oral rehydration solutions. ? Eat food in small amounts and let your stomach recover. ? Get lots of rest. You may feel tired or weak. ? No greasy or fried foods for the next 24-48 hours BRAT diet Bananas Rice Apples and [place] ? Make sure to drink plenty of liquids ? Return if needed ? Straight to ER if any life threatening symptoms ? Follow up with family doctor in the next 48-72 hours if no improvement or any worsening of symptoms Referrals: Dewayne Jeffery MD [Primary Care Provider] - As needed Forms: Work/School Release Time of Disposition: 17:46 Medical Decision Making - Srikanth Inquiry Pt receiving controlled substance: No Srikanth was queried for this patient: No Vital Signs: 12/25/20 15:50 Temperature 98.2 F Temperature Source Oral Pulse Rate [Left Radial] 65 Respiratory Rate 20 Blood Pressure [Right Arm] 116/79 Blood Pressure Mean [Right Arm] 91 Blood Pressure Source [Right Arm] Automatic Cuff Blood Pressure Position [Right Arm] Sitting 02 Sat by Pulse Oximetry 99 Oxygen Delivery Method Room Air [facility] HPI - General Stated complaint: v/d, hip pain no ao Time Seen by Provider: 12/25/20 17:42 Mode of Arrival: Ambulatory Source of Information: Patient Limitations: No Limitations Description of Symptoms (Recalled from Triage Doc. by RN): c/o vomiting x3 and diarrhea since last night and hip pain HEENT Symptoms (Recalled from RN notes): No Resp Symptoms (Recalled from RN notes): No Skin Symptoms (Recalled from RN notes): No MS Symptoms (Recalled from RN notes): No Functional Status (Recalled from RN notes): na - History of Present Illness Provider Complaint: Patient states duncan marcie was up most of the night with vomiting and diarrhea States that she didnt get much rest so this morning she was unable to go to work so she came in to get a note States that today she was feeling better and not had any vomiting or diarrhea - Related Data Home Medications Medication Instructions Recorded Confirmed Aspirin 81 mg PO DAILY 05/29/17 07/12/20 Rabeprazole Sodium 20 mg PO DAILY 09/15/18 07/12/20 metronidazole 500 mg tablet 500 mg PO tab 05/14/20 07/12/20 cholecalciferol (vitamin D3) 1,250 1,250 mcg PO WEEKLY 05/15/20 07/12/20 mcg (50,000 unit) capsule Previous Rx's Medication Instructions Recorded ofloxacin 0.3 % ear drops 3 drp OTIC BID 14 Days #10 ml 05/14/20 Allergies Allergy/AdvReac Type Severity Reaction Status Date / Time No Known Allergies Allergy Verified 07/12/20 15:40 - Worker's Comp Is this a Worker's Comp case?: No [facility] History - Hepatitis A Screen Drug use history?: No High risk sexual behaviors?: No History of sexually transmitted infection?: No Currently employed?: No Childcare worker?: No Do you have indoor plumbing?: Yes Do you have electricity?: Yes Attestation statement:: This patient has been screened for Hepatitis A risk factors. I have reviewed the patient's past medical history: Yes Medical History: Reports:: Asthma, Chronic Obstructive Pulmonary Disease (COPD), Gastroesophageal Reflux Disease(GERD) Denies:: Cancer, Diabetes Mellitus Type 1, Diabetes Mellitus Type 2, Internal Pacemaker, Lung Disease, MRSA, Seizures Other Medical History: Reports: Other. Denies: Blood Transfusion Reaction Laterality Cases: Bilateral: Myringotomy (Ear Tubes), Tonsillectomy, Other Other Surgeries: Yes: No Previous Surgery
[2020-12-25 17:52] VITALS: BP 116/79; PULSE 65; RESP 20; TEMP 36.8; O2SAT 99
== END 2020-12-25 17:53 | disposition home or self-care (01) ==
PROVIDERS: Emergency Provider Nurse Practitioner; PCP Internal Medicine Adolescent Medicine
DX: R11.10 Vomiting, unspecified (principal); R19.7 Diarrhea, unspecified; J44.9 Chronic obstructive pulmonary disease, unspecified; K21.9 Gastro-esophageal reflux disease without esophagitis
CPT/HCPCS: 99202; G0463

== ENCOUNTER → 2021-06-10 17:21 | Outpatient (CLI) | payer OTHER, SELFPAY ==
--- NOTE | 2021-06-10 17:34 | XR_ITS ---
PROCEDURE INFORMATION: Exam: XR Lumbosacral Spine Exam date and time: 06/10/2021 5:26 PM Age: 45 years old Clinical indication: Pain; Sciatica; Right TECHNIQUE: Imaging protocol: XR of the lumbosacral spine. Views: 2 or 3 views. COMPARISON: RF FL UPPER GI W AIR 09/23/2018 10:20 AM FINDINGS: Bones/joints: Normal. No acute fracture. Normal alignment. Soft tissues: Unremarkable. Intraperitoneal space: Right upper quadrant surgical clips. Pelvic surgical clips. Vasculature: Vascular calcifications. IMPRESSION: No acute findings.
== END ==
PROVIDERS: PCP Internal Medicine Adolescent Medicine; Visit Provider Nurse Practitioner Family
DX: M54.41 Lumbago with sciatica, right side (principal); G89.29 Other chronic pain
CPT/HCPCS: 72100

== ENCOUNTER 2021-06-18 15:54 | Outpatient (RCR) | payer OTHER, SELFPAY ==
--- NOTE | 2021-06-18 16:41 | HMH.PTOPEV ---
PT Outpatient Evaluation Rehab PT Outpatient Evaluation Start: 06/18/21 16:25 Freq: Status: Active Protocol: Document 06/18/21 16:25 CIROJAIME (Rec: 06/18/21 16:39 NADIA [id number]) Electronically Signed By Yasmany Snow, PT 06/18/21 16:25 Outpatient Therapy Subjective History Subjective History Patient is a 45 year old female presenting to outpatient PT with reports of sub-acute LBP with BLE intermittent radicular symptoms (R>L) starting approximately 2 months ago. Patient reports symptom onset after performing a lot of bending and lifting activities while cleaning her house. Most recent imaging negative. Comorbidities indicate abdominal surgery x 5 and asthma. Chief Complaint Pain,Stiff,Paresthesia Symptom Type Ache,Burning Symptoms Relieved By Rest/Positioning,OTC Meds Symptoms Aggravated By Standing,Bending/Stooping, Physical Activity,Walking, Lifting Prior Functional Limitations None Current Functional Limitations Lifting,Housework,Sleeping, Walking,Bending/Stooping Lumbopelvic Eval Posture Thoracic Spine Posture Standing Position Neutral Lumbar Spine Posture Standing Position Increased Lordosis Assistive device Assistive Devices None / NA Palapation tenderness bilateral Lumbar/Sacral Palpation Findings Tenderness,Spasm,Trigger Point ,Muscle Guarding Lumbar/Sacral Palpation Overall Comment B post hip mm 3/4 Range of Motion Lumbar Spine Active Flexion Range of WNL Motion (degrees) Lumbar Spine Active Extension Range of WNL Motion (degrees) Left Lumbar Spine Lateral Flexion Active 22 Range of Motion (degrees) Right Lumbar Spine Lateral Flexion 18 Active Range of Motion (degrees) Manual Muscle Test Bilateral Knee Extension Strength Grade 5 Normal Knee Flexion Strength Grade 5 Normal Hip Flexion Strength Grade 5 Normal Extensor Hallucis Longus Strength Grade 5 Normal Ankle Dorsiflexion Strength Grade 5 Normal Gastronemius/Soleus Strength Grade 5 Normal Altered Sensation LE Dermatome Level L4,L5 Comment B intermittent NT,burning Special Tests Hip Vineet (XIOMY) Test Positive Left,Positive Right Hip Evert Test Positive Left,Positive Right Hip Piriformis Test Positive Left,Positiv
== END 2021-06-18 15:55 | disposition home or self-care (01) ==
LOC: PT 15:54
PROVIDERS: PCP Internal Medicine Adolescent Medicine; Visit Provider Nurse Practitioner Family
DX: M54.41 Lumbago with sciatica, right side (principal)
CPT/HCPCS: 97163

== ENCOUNTER 2021-09-02 14:38 | Emergency (ER) | payer OTHER, SELFPAY ==
[2021-09-02 15:30] VITALS: BP 146/73; PULSE 63; RESP 19; TEMP 36.6; O2SAT 99; BMI 26.3
[2021-09-02 15:41] LABS: Apearance,Urine Clear (Clear); Bilirubin,Urine Negative (Negative); Blood, Urine Negative (Negative); Color,Urine Dark Yellow (Yellow); Glucose,Urine (UA) Negative (Negative); Ketones,Urine Negative (Negative); Protein,Urine Negative (Negative); UTC Leukocyte Esterase,Urine 1+ (Negative); UTC Nitrate,Urine Negative (Negative); Urobilinogen,Urine 0.2 EU/dl (0.2)
--- NOTE | 2021-09-02 15:46 | HMH.EDUTC ---
[facility] [place] Disposition Clinical Impression: Sinusitis Qualifiers: Sinusitis location: unspecified location Chronicity: unspecified Qualified Code(s): J32.9 - Chronic sinusitis, unspecified UTI (urinary tract infection) Qualifiers: Urinary tract infection type: site unspecified Hematuria presence: without hematuria Qualified Code(s): N39.0 - Urinary tract infection, site not specified Disposition: Home, Self-Care Condition on Discharge: Good Instructions: DI for Urinary Tract Infection (UTI), DI for Sinusitis, Middle Ear Infection Additional Instructions: *Increase fluids. Water not Soda or Tea *Start antibiotic immediately and be sure to take as ordered for the FULL length of time although you should start to see improvement over the next 48 hours *Pyridium as needed Remember this medication will turn your urine [place]. This is normal but it will stain what ever it gets on *You should not use Pyridium for more than 48 hours. If so , follow up with your primary physician to review urine culture and ensure that antibiotic is adequate for infection *Be SURE to follow up anytime for new or worsening symptoms with your family doctor. AND in 48 hours for urine culture results with your family doctor, if you do not have a doctor then you may call back to the [facility] for urine culture results and further treatment. We do recommend that you choose and establish care with a Primary Care Physician. AND follow up with them in 10-14 days to repeat UA to ensure infection is resolved and blood no longer present *Be sure to let your PCP know that we sent urine cultures from the [facility] so they can follow up to ensure that you area the on the correct antibiotic Call your doctor office and make appointment for 48 hours (2 days from today) to follow up and get the results of your urine culture and further treatment *Monitor Temp, Over the counter Motrin or Tylenol as directed/as needed Tylenol every 4 hours and Motrin every 6 hours (as long as your family doctor has told you that you can take it) for fever or pain. and straight to ER if unable to lower temp less than 101.0 after medication given *Sleep elevated *Humidifier/Vaporizer *Flonase 2 sprays in each nostril daily but be aware that it may take 2-3 days before you notice improvement Follow up IMMEDIATELY for new or worsening symptoms or no Noticeable improvement over the next 48-72 hours. 911 for difficulty breathing or swallowing Prescriptions: Fluticasone Propionate [Flonase 50mcg nasal spray 16gm] 1 spr NS DAILY #1 each Transmission Status: Pending to [facility] # Cefdinir [Omnicef 300mg Capsule] 300 mg PO BID #20 cap Transmission Status: Pending to [facility] # Phenazopyridine HCl [Pyridium 200mg Tablet] 200 pow PO TID #6 tab Transmission Status: Pending to [facility] # Referrals: Dewayne Jeffery MD [Primary Care Provider] - As needed Time of Disposition: 15:58 Medical Decision Making - Srikanth Inquiry Pt receiving controlled substance: No Srikanth was queried for this patient: No Vital Signs: 09/02/21 15:30 Temperature 97.8 F Temperature Source Oral Pulse Rate [Right Brachial] 63 Respiratory Rate 19 Blood Pressure [Right Arm] 146/73 H Blood Pressure Mean [Right Arm] 97 Blood Pressure Source [Right Arm] Automatic Cuff Blood Pressure Position [Right Arm] Sitting 02 Sat by Pulse Oximetry 99 Oxygen Delivery Method Room Air - Lab Data Lab results reviewed: Yes: I reviewed the patient's lab results. Lab Results 09/02/21 15:30: Urine Color Dark yellow, Urine Appearance Clear, Urine pH 6.0, Ur Specific [place] 1.020, Urine Protein Negative, Urine Glucose (UA) Negative, Urine Ketones Negative, Urine Blood Negative, Urine Nitrate Negative, Urine Bilirubin Negative, Urine Urobilinogen 0.2, Ur Leukocyte Esterase 1+ A [facility] [place] HPI - General Stated complaint: possible ear/ sinus infection possible UTI Time Seen by Provider: 09/02/21 15
[2021-09-02 16:06] VITALS: BP 146/73; PULSE 63; RESP 19; TEMP 36.6; O2SAT 99
== END 2021-09-02 16:10 | disposition home or self-care (01) ==
PROVIDERS: Emergency Provider Nurse Practitioner; PCP Internal Medicine Adolescent Medicine
DX: J32.9 Chronic sinusitis, unspecified (principal); N39.0 Urinary tract infection, site not specified
CPT/HCPCS: 81003; 87086; 87088; 87186; 99212; G0463

== ENCOUNTER 2021-10-29 22:19 | Emergency (ER) | payer OTHER, SELFPAY ==
[2021-10-29 22:21] VITALS: BP 126/92; PULSE 100; RESP 16; TEMP 36.8; O2SAT 100; BMI 27.2
--- NOTE | 2021-10-29 22:56 | HMH.EDGENADL ---
Discharge Plan Disposition Patient Disposition: Home, Self-Care Condition: Good Prescriptions Prescriptions: New dicyclomine 20 mg tablet 20 mg PO TID PRN (Reason: cramping) Qty: 12 0RF No Action azithromycin 500 mg tablet 1,000 mg PO DAILY 1 Days Qty: 2 0RF metronidazole 500 mg tablet 500 mg PO BID Qty: 14 1RF rabeprazole 20 MG tablet,delayed release (DR/EC) 20 mg PO DAILY aspirin 81 MG tablet,chewable 81 mg PO DAILY fluticasone propionate 120 SPRAY bottle 1 spr NS DAILY Qty: 1 0RF Rx Instructions: one spray in each nostril daily Referrals Follow up/Referrals: Dewayne Jeffery MD [Primary Care Provider] - See instructions Instructions Patient Instructions: DI for Acute Abdominal Pain Discharge ED Provider: Carina Barfield Adult HPI General Chief complaint: Abdominal Pain Stated complaint: Back&abd Pain Nausa Time Seen by Provider: 10/29/21 22:56 Mode of Arrival: Ambulatory Limitations: No Limitations Description of Symptoms (Recalled from ER Triage Doc. by RN): pt states a week ago lower back pain and was seen by pcp and started on steriods. today pt began c/o lower abd pain with nauesous. pt denies v/d History of Present Illness HPI narrative: 45-year-old female presenting to the emergency department with abdominal pain radiating to the back. Back pain started a few days ago. It became more consistent over the last 2 days. Today, the pain is located in the mid abdomen, just above the bellybutton. It radiates around toward her back. Described as sharp and intense. She saw her PCP for the back pain and that person prescribed steroids. She has been taking them. No other medications for pain. She has had changes in bowels, intermittent constipation. She denies diarrhea. Feels nauseous. No vomiting. No hematuria or dysuria. She has had a cholecystectomy. Denies other abdominal surgeries. No history of alcohol use or ulcers Related Data Home Medications Medication Instructions Recorded Confirmed aspirin 81 mg chewable tablet 81 mg PO DAILY Blood thinner 05/29/17 09/25/21 rabeprazole 20 mg tablet,delayed 20 mg PO DAILY gerd 09/15/18 09/25/21 release Previous Rx's Medication Instructions Recorded fluticasone propionate 50 1 spr intranasal DAILY #1 ea 09/02/21 mcg/actuation nasal spray,suspension azithromycin 500 mg tablet 1,000 mg PO DAILY 1 day #2 tabs 09/27/21 metronidazole 500 mg tablet 500 mg PO BID #14 tabs 09/27/21 dicyclomine 20 mg tablet 20 mg PO TID PRN cramping #12 tabs 10/30/21 Allergies Allergy/AdvReac Type Severity Reaction Status Date / Time No Known Allergies Allergy Verified 09/25/21 08:56 PFSH PFSH Social History Smoking Status: Never smoker alcohol intake: never substance use type: denies use current occupational status: other Travel in the last 8 weeks: None household members: family housing: house current occupation: [employer] caffeine: Yes ROS Obtained: Yes All systems reviewed & no additional complaints except as documented Constitutional Constitutional: Denies chills, Denies fever(s) and Denies headache(s) ENT Ears, Nose, Mouth, and Throat: Denies dizziness, Denies headache(s) and Denies sore throat Cardiovascular Cardiovascular: Denies chest pain and Denies palpitations Respiratory Respiratory: Denies chest congestion, Denies cough and Denies wheezing Gastrointestinal Gastrointestingal: Reports abdominal pain and constipation; Denies diarrhea, nausea or vomiting Genitourinary Female Genitourinary: Denies dysuria, Denies flank pain and Denies hematuria Musculoskeletal Musculoskeletal: Reports back pain and Denies myalgias Neurologic Neurologic: Denies dizziness and Denies headache(s) Endocrine Endocrine: Denies palpitations Allergic/Immunologic Allergic/Immunologic: Denies wheezing Physical Exam General General appearance: alert and in no apparent distress Head Head exam: atrauma
[2021-10-29 23:05] LABS: Microscopic, Urine URINE MICROSCOPIC (MICROSCOPIC)
--- NOTE | 2021-10-29 23:05 | CT_ITS ---
PROCEDURE INFORMATION: Exam: CT Abdomen And Pelvis With Contrast Exam date and time: 10/29/2021 11:36 PM Age: 45 years old Clinical indication: Abdominal pain TECHNIQUE: Imaging protocol: Computed tomography of the abdomen and pelvis with contrast. Radiation optimization: All CT scans at this facility use at least one of these dose optimization techniques: automated exposure control; mA and/or kV adjustment per patient size (includes targeted exams where dose is matched to clinical indication); or iterative reconstruction. Contrast material: ISOVUE; Contrast volume: 75 ml; Contrast route: IV; COMPARISON: RF FL UPPER GI W AIR 09/23/2018 10:20 AM FINDINGS: Liver: Unremarkable. Gallbladder and bile ducts: Status post cholecystectomy. Pancreas: Unremarkable. Spleen: Unremarkable. Adrenal glands: Unremarkable. Kidneys and ureters: Unremarkable. Stomach and bowel: Unremarkable. Appendix: Appendix is visualized and is normal. Intraperitoneal space: No free fluid. No pneumoperitoneum. Vasculature: Moderate amount of calcific arterial atherosclerosis. No abdominal aortic aneurysm or dissection. Lymph nodes: Unremarkable. Urinary bladder: Unremarkable. Reproductive: Status post hysterectomy. Bones/joints: No acute osseous abnormality. Soft tissues: Unremarkable. IMPRESSION: No acute findings in the abdomen or pelvis.
[2021-10-29 23:09] LABS: Appearance,Urine CLEAR (Clear); Bilirubin,Urine Negative (Negative); Blood, Urine Negative (Negative); Color,Urine YELLOW (Yellow); Glucose,Urine (UA) Negative (Negative); Ketones,Urine Negative (Negative); Leukocyte Esterase,Urine Negative (Negative); Nitrate,Urine Negative (Negative); Protein,Urine Negative (Negative); Specific Gravity, Urine 1.025 (1.005-1.030); Urobilinogen,Urine 0.2 EU/dl (0.2)
[2021-10-29 23:13] LABS: Urine Pregnancy, HCG Qual. Negative (Negative)
[2021-10-29 23:22] LABS: Bacteria,Urine Trace /lpf; WBC,Urine Occasional #/hpf (0-3)
[2021-10-29 23:25] LABS: Basophils # 0.2 K/mm3 (0-0.2); Basophils % 1.1 % (0.1-2.0); Eosinophils # 0.1 K/mm3 (0.0-0.4); Eosinophils % 0.8 % (0.1-12.0); Hematocrit 41.3 % (37.0-47.0); Hemoglobin 13.4 g/dL (12.2-16.2); Lymphocytes # 3.7 K/mm3 (0.7-4.5); Lymphocytes % 22.7 % (10-50); Mean Corpuscular HGB Conc 32.4 g/dL (31.8-35.4); Mean Corpuscular Hemoglobin 30.6 pg (27.0-31.2); Mean Corpuscular Volume 94.5 fl (81-99); Mean Platelet Volume 8.4 fl (7.4-10.4); Monocytes # 1.2 K/mm3 (0.1-1.0); Monocytes % 7.1 % (1.7-9.3); Neutrophils # 11.2 K/mm3 (1.8-7.8); Neutrophils % 68.4 % (37.0-80.0); Platelet Count 310 K/mm3 (142-424); Red Blood Count 4.37 M/mm3 (4.20-5.40); Red Cell Distribution Width 13.9 % (11.5-17.5); White Blood Count 16.4 K/mm3 (4.8-10.8)
[2021-10-29 23:28] LABS: MANUAL DIFFERENTIAL MANUAL DIFFERENTIAL (MANUAL DIFF)
[2021-10-29 23:30] VITALS: BP 117/80; PULSE 78; O2SAT 98
[2021-10-29 23:36] LABS: Alanine Aminotransferase 39 U/L (12-78); Albumin Level 4.1 g/dl (3.5-5.0); Albumin/Globulin Ratio 1.4 (1.1-1.8); Alkaline Phosphatase 120 U/L (38-126); Amylase 72 U/L (30-110); Anion Gap 7.4 mEq/L (5-15); Aspartate Amino Transferase 31 U/L (14-36); Bilirubin,Total 0.2 mg/dl (0.2-1.3); Blood Urea Nitrogen 12 mg/dl (7-17); Calcium 8.8 mg/dl (8.4-10.2); Carbon Dioxide 31 mmol/L (22.0-30.0); Chloride 103 mmol/L (98-107); Creatinine Clearance Estimated 109 mL/min (50-200); Estimated Glomerular Filt Rate 91 ml/min (>60); GFR (African American) 110 ML/MIN (>60); Glucose 101 mg/dl (74-100); Lipase 79 U/L (23-300); Potassium 3.4 mmoL/L (3.5-5.1); Sodium 138 mmol/L (136-145); Total Protein,Serum 7.1 g/dl (6.3-8.2)
[2021-10-29 23:59] LABS: Lymphocytes % 29 % (10-50); Monocytes % 2 % (2-9); Neutrophils % 69 % (42-76); Platelet Estimate Normal; RBC Morphology Normal; Total Cells Counted 100
[2021-10-30 01:33] VITALS: BP 121/74; PULSE 71; RESP 20; TEMP 36.8; O2SAT 98
[2021-10-30 01:42] VITALS: BP 118/73; PULSE 83; RESP 16; TEMP 36.7; O2SAT 98
== END 2021-10-30 01:35 | disposition home or self-care (01) ==
PROVIDERS: Emergency Provider Emergency Medicine; PCP Internal Medicine Adolescent Medicine
DX: M54.50 Low back pain, unspecified (principal); R10.9 Unspecified abdominal pain; R11.0 Nausea
CPT/HCPCS: 74177; 80053; 81001; 81025; 82150; 83690; 85007; 85025; 96374; 99284; Q9967

== ENCOUNTER → 2022-03-18 08:53 | Outpatient (CLI) | payer BC, OTHER, SELFPAY ==
--- NOTE | 2022-03-18 08:53 | XR_ITS ---
FINAL REPORT TECHNIQUE: Bone densitometry calculations of the lumbar spine and hip were obtained. CLINICAL HISTORY: post menopausal COMPARISON: 05/30/2020 FINDINGS: DEXA BONE DENSITY AXIAL SKELETON Using L1-4, the bone mineral density of the spine is 1.080 g/cm2, corresponding to T-score of 0.3. Previously measured 1.054 g/cm2, corresponding to T-score of 0.1. Using the left hip, the bone mineral density of the total hip is 0.812 g/cm2, corresponding to a T-score of -1.1. Previously measured 0.789 g/cm2, corresponding to T-score of -1.3. NOTE: T-score: Standard deviation compared with peak bone mass of young adult mean. *Following the recommendations of the International Society of Bone densitometry, classification of hip BMD is based on the lower of two T-scores; total hip or femoral neck. IMPRESSION: Diminished bone mineral density of the left hip consistent with osteopenia. FRAX 10 year fracture risk is 0.1% for a hip fracture and 2.7% for a major osteoporotic fracture. Reviewed, Interpreted and Dictated by Wang Gonzalez III, MD Transcribed by Clair Mcgarry Authenticated and [facility]
== END ==
PROVIDERS: PCP Internal Medicine Adolescent Medicine; Visit Provider Podiatrist
DX: M85.89 Other specified disorders of bone density and structure, multiple sites (principal); E55.9 Vitamin D deficiency, unspecified; M77.41 Metatarsalgia, right foot; M77.42 Metatarsalgia, left foot; M77.52 Other enthesopathy of left foot and ankle
CPT/HCPCS: 77080

== ENCOUNTER → 2022-03-20 10:12 | Outpatient (CLI) | payer BC, OTHER, SELFPAY ==
--- NOTE | 2022-03-20 10:19 | XR_ITS ---
FINAL REPORT CLINICAL HISTORY: foot pain COMPARISON: 04/21/2020 FINDINGS: Left foot Three views were obtained. There is no acute fracture or dislocation. There are mild degenerative changes. Hallux valgus deformity is identified. No soft tissue abnormality is identified. IMPRESSION: No acute process. Reviewed, Interpreted and Dictated by Wang Gonzalez III, MD Transcribed by Jessica Laurent Authenticated and [facility]
--- NOTE | 2022-03-20 10:19 | XR_ITS ---
FINAL REPORT CLINICAL HISTORY: foot pain COMPARISON: 04/21/2020 FINDINGS: Right foot Three views were obtained. There is no acute fracture or dislocation. There is flattening of the head of the 3rd metatarsal, stable from previous. There are mild degenerative changes. Hallux valgus deformity is identified No soft tissue abnormality is identified. IMPRESSION: Stable appearance of the foot. Reviewed, Interpreted and Dictated by Wang Gonzalez III, MD Transcribed by Jessica Laurent Authenticated and [facility]
== END ==
PROVIDERS: PCP Internal Medicine Adolescent Medicine; Visit Provider Nurse Practitioner Family
DX: M79.671 Pain in right foot (principal); M79.672 Pain in left foot
CPT/HCPCS: 73630

== ENCOUNTER → 2022-03-24 07:49 | Outpatient (CLI) | payer BC, OTHER, SELFPAY ==
--- NOTE | 2022-03-24 07:49 | MM_ITS ---
PROCEDURE INFORMATION: Exam: MG Bilateral Screening 3D Mammography Exam date and time: 03/24/2022 7:54 AM Age: 46 years old Clinical indication: Screening examination. Her paternal grandmother had breast cancer. History of benign right needle biopsy. TECHNIQUE: Imaging protocol: Bilateral Screening tomosynthesis and 2D mammography including computer-aided detection (CAD) when performed. COMPARISON: 1. MG MM DIG MAMM DX UNILAT RT CAD 06/13/2020 1:24 PM 2. MG MM DIG MAMM DX UNILAT RT CAD 06/04/2020 2:00 PM 3. MG MM DIG SCREENING MAMM BI W/CAD 11/07/2019 10:06 AM 4. MG MM DIG SCREENING MAMM BI W/CAD 09/15/2018 4:21 PM FINDINGS: MAMMOGRAPHY: Breast composition: The breasts are heterogeneously dense, which may obscure small masses. Mass: Questionable 2.5 cm oval, partly circumscribed, partly visualized mass in the central left breast, posterior 3rd, along the retroareolar line, seen in the CC frame 20. Architectural distortion: None. Calcifications: No suspicious calcifications. Asymmetric density: None. Skin thickening: None. Axillary adenopathy: None. IMPRESSION: Patient to be recalled for left diagnostic spot compression in the CC projection and full field lateral as well as targeted left ultrasound for further evaluation of possible left breast mass. ASSESSMENT: BI-RADS Category 0: Incomplete- Need Additional Imaging Evaluation and/or Prior Mammograms for Comparison
== END ==
PROVIDERS: PCP Internal Medicine Adolescent Medicine; Visit Provider Nurse Practitioner Obstetrics & Gynecology
DX: Z12.31 Encounter for screening mammogram for malignant neoplasm of breast (principal)
CPT/HCPCS: 77063; 77067

== ENCOUNTER → 2022-04-12 12:35 | Outpatient (CLI) | payer BC, OTHER, SELFPAY ==
[2022-04-12 13:08] LABS: Basophils # 0.1 K/mm3 (0-0.2); Basophils % 1.6 % (0.1-2.0); Eosinophils # 0.2 K/mm3 (0.0-0.4); Eosinophils % 2.3 % (0.1-12.0); Hematocrit 42.5 % (37.0-47.0); Hemoglobin 13.5 g/dL (12.2-16.2); Lymphocytes # 3.3 K/mm3 (0.7-4.5); Lymphocytes % 37.9 % (10-50); Mean Corpuscular HGB Conc 31.8 g/dL (31.8-35.4); Mean Corpuscular Hemoglobin 30.1 pg (27.0-31.2); Mean Corpuscular Volume 94.4 fl (81-99); Mean Platelet Volume 8.8 fl (7.4-10.4); Monocytes # 0.5 K/mm3 (0.1-1.0); Monocytes % 6.1 % (1.7-9.3); Neutrophils # 4.5 K/mm3 (1.8-7.8); Neutrophils % 52.1 % (37.0-80.0); Platelet Count 340 K/mm3 (142-424); Red Cell Distribution Width 14.3 % (11.5-17.5); White Blood Count 8.7 K/mm3 (4.8-10.8)
[2022-04-12 13:22] LABS: Chloride 107 mmol/L (98-107); Potassium 4.2 mmoL/L (3.5-5.1); Sodium 139 mmol/L (136-145)
[2022-04-12 13:25] LABS: Alanine Aminotransferase 38 U/L (12-78); Albumin Level 4.2 g/dl (3.5-5.0); Albumin/Globulin Ratio 1.4 (1.1-1.8); Alkaline Phosphatase 111 U/L (38-126); Anion Gap 8.2 mEq/L (5-15); Aspartate Amino Transferase 33 U/L (14-36); Bilirubin,Total 0.4 mg/dl (0.2-1.3); Blood Urea Nitrogen 11 mg/dl (7-17); Calcium 9.1 mg/dl (8.4-10.2); Carbon Dioxide 28 mmol/L (22.0-30.0); Estimated Glomerular Filt Rate 68 ml/min (>60); GFR (African American) 82 ML/MIN (>60); Globulin 2.9 g/dL (1.3-3.2); Glucose 76 mg/dl (74-100); Total Protein,Serum 7.1 g/dl (6.3-8.2)
[2022-04-22 04:09] LABS: 1,25 Dihydroxy Vitamin D 33 pg/mL (.); 1,25-Dihydroxy, Vitamin D-2 19 pg/mL (.); 1,25-Dihydroxy, Vitamin D-3 14 pg/mL (.)
== END ==
PROVIDERS: PCP Internal Medicine Adolescent Medicine; Visit Provider Podiatrist
DX: Z01.818 Encounter for other preprocedural examination (principal)
CPT/HCPCS: 36415; 80053; 82652; 85025

== ENCOUNTER → 2022-04-14 08:55 | Outpatient (CLI) | payer BC, OTHER, SELFPAY ==
--- NOTE | 2022-04-14 09:01 | ECG_ITS ---
APPROVED REPORT Exam: Resting ECG HR:79 bpm ECG Measurements Heart Rate 79 AXES VT 124 P 68 QRSd 80 QRS 69 QT 378 T 48 QTc 413 Conclusion SINUS RHYTHM WITH SINUS ARRHYTHMIA NONSPECIFIC ST & T-WAVE ABNORMALITY BORDERLINE ECG UNCONFIRMED REPORT Electronically signed by : Dewayne Jeffery MD 04/14/2022 19:22:32
--- NOTE | 2022-04-14 09:05 | XR_ITS ---
FINAL REPORT CLINICAL HISTORY: pre op clearance, short of air FINDINGS: PA and lateral views of the chest are obtained. There is no prior exam for comparison. The cardiac and mediastinal silhouettes are within normal limits. There is evidence of granulomatous disease. The lungs are otherwise clear. There is no pleural effusion, pneumothorax, or acute osseous abnormality. IMPRESSION: Evidence of granulomatous disease, lungs are otherwise clear. Reviewed, Interpreted and Dictated by Jolene Rogers MD Transcribed by Clair Mcgarry Authenticated and [facility]
== END ==
PROVIDERS: PCP Internal Medicine Adolescent Medicine; Visit Provider Podiatrist
DX: Z01.810 Encounter for preprocedural cardiovascular examination (principal)
CPT/HCPCS: 71046; 93005

== ENCOUNTER 2022-04-22 08:00 | Outpatient (RCR) | payer BC, OTHER, SELFPAY | END 2022-04-22 08:05 | disposition home or self-care (01) | LOC: PT 08:00 | PROVIDERS: PCP Internal Medicine Adolescent Medicine; Visit Provider Nurse Practitioner Family | DX: M54.41 Lumbago with sciatica, right side (principal); M70.61 Trochanteric bursitis, right hip | CPT/HCPCS: 97035; 97110; 97163 ==

== ENCOUNTER 2022-04-23 09:01 | Day surgery (SDC) | payer BC, OTHER, SELFPAY ==
[2022-04-21 10:03] VITALS: BMI 23.3
[2022-04-23] VITALS (13 sets, daily range): BP systolic 103–121; BP diastolic 61–86; PULSE 68–112; RESP 12–18; TEMP 36.2–43; O2SAT 92–100
--- NOTE | 2022-04-23 14:06 | SUR.OPER ---
Family updated at this time per preop staff.
--- NOTE | 2022-04-23 14:57 | XR_ITS ---
FINAL REPORT CLINICAL HISTORY: OR IMAGES MPJ Fusion fluoro time: 1.12 FINDINGS: FLUORO TIME PROCEDURE: Fluoroscopy in the operating room. FINDINGS: Fluoroscopy time was provided by the radiology department for the clinical service. Two films were obtained. Fluoroscopy exposure time: 1.12 minute IMPRESSION: See above Reviewed, Interpreted and Dictated by Wang Gonzalez III, MD Transcribed by Clair Mcgarry Authenticated and [facility]
--- NOTE | 2022-04-23 15:49 | EXP.ANES.I ---
[facility] Anesthesia Record Part I Anesthesia Record I Intake, IV Amount: 600 Estimated blood loss (mL): 20 Urine output (mL): 0 Blood Pressure: 121/69 SaO2: 93 Pulse Rate: 112 Respiratory Rate: 12 Temperature: 97.1 F Patient is:: Drowsy and Stable Stable to PACU at:: 15:49
--- NOTE | 2022-04-23 15:56 | XR_ITS ---
FINAL REPORT CLINICAL HISTORY: post surgery COMPARISON: 03/20/2022 FINDINGS: Left foot Three views were obtained. There has been interval postoperative changes in the midfoot and forefoot. Multiple skull plates and screws are present. There is a staple in the 1st proximal phalanx. There is improved hallux valgus deformity. A splint obscures some of the detail. IMPRESSION: Postsurgical changes. Reviewed, Interpreted and Dictated by Wang Gonzalez III, MD Transcribed by Jessica Laurent Authenticated and [facility]
--- NOTE | 2022-04-23 16:03 | EXP.OP.NOTE ---
Date of procedure: 04/23/22 Pre-op Diagnosis:: Left hallux valgus with bunion Left metatarsus adductus deformity Left foot hammertoes Left foot metatarsalgia Left foot MPJ capsulitis Vitamin D deficiency Post-op Diagnosis:: Same Procedure performed:: Left lapidus bunionectomy (97980) Multiple tarsometatarsal joint fusion (34620) Left 1st MPJ capsulotomy (73485) Left Jean Marie osteotomy (26541) Autograft bone graft (79077) Surgeon:: Katerina Millan DPM CROSSCUTTER:: Michael Lew Anesthesia: GETA and regional (right pop nerve block) Estimated blood loss (mL): 30 Clinical Note:: Patient is a 46-year-old female who presents for bilateral foot pain and surgical planning for left bunionectomy.? 3 views bilateral foot x-rays reviewed with patient and show hallux valgus deformity with metatarsus adductus, left worse than right.? DEXA scan reviewed and showed osteopenia. We discussed conservative versus surgical treatment options.? Patient is failed conservative treatment options include change shoe wear, inserts, strapping, taping and padding. Patient has also tried NSAIDs, ice and elevate for pain and swelling. Patient has tried and failed conservative care including: Modification of shoe gear, modification of activity, wider shoes, splints, toe spacers, topical anti-inflammatories, oral NSAIDs , and still has pain and worsening symptoms. She is now struggling to get through her daily activities. Previously, explained to the patient and recommended for her: Left Lapidus bunionectomy for the hypermobility of the first ray, possible lateral release, hammertoe repair and possible MPJ release first tendo capsular balancing, and gastrocnemius recession. Patient is specifically asking about minimally invasive bunion surgery and the Lapiplasty procedure for left foot bunion. Also, previously recommended the patient to get a second opinion, she decided she wants me to perform her surgery. The patient has been instructed on the planned procedure, all risk versus benefits of the procedure to include bleeding, infection, nerve and blood vessel damage, need for further surgery, delay in healing of soft tissue or bone, failure of bones to heal, non-union, mal-union, prolonged pain and recovery, prolonged swelling, CRPS/RSD, DVT and anesthetic complications. No guarantees were given. All questions fully answered. The patient verbalized understanding and agreed to proceed with surgery. Written consent was obtained. Medical clearance per PCP-Josiane Ceballos. Necessary labs and pre-op testing ordered: CBC, CMP, vit D, EKG, CXR. Start vit D 50,000 units weekly. Rx for [place] 7.5/325, Zofran 4mg, Motrin 800mg, Toradol. Patient given crutches, recommend RKS. Operative findings:: Left foot significant bunion and metatarsus adductus deformity. Hallux interphalangeus noted. Large prominent capsular tissue and bursa at the first MPJ. Some synovitis noted throughout the foot. Dorsal spurring and degenerative changes noted to the first second and third tarsometatarsal joints. No signs of infection. Semirigid hammertoe deformities noted 2?5. The hammertoes and windswept deformity reduced after the metatarsus adductus and bunion had been reduced/fixated. The 2nd PIPJ was semireducible in the 3-5th hammertoes were reducible. Negative 2nd MPJ Damaris sign. Operative note:: On this date and time, the patient was deemed an appropriate surgical candidate. With informed consent signed, the patient was taken to the operating theater after anesthesia did a regional nerve block. The patient was positioned supine. General anesthesia was induced. Tourniquet was applied to the thigh. The left lower extremity was prepped and draped in normal sterile fashion. IV Ancef infused. Left calcaneal autograft bone harvest: Attention was directed to the lateral calcaneus where a an incision was mapped out. Dissection was carried down full-thickness to the level of the bone. Utilizing an autograft bone harvester drill was inserte
[2022-04-23 16:34] LABS: POC Glucose,Bedside 135 (70-110)
--- NOTE | 2022-04-23 18:06 | SUR.PHASEII ---
1651 - Spoke w/ Dr. Millan about pt's c/o nausea and sever vertigo. Pt admitted that she has taken zofran in the past and it has made her dizzy like this as well but she did not tell this to staff prior to admin today. Orders received for pt to receive scope patch x 1 now. would also be sending script to pt's pharmacy for scope patch and phenergan. 1699 - Verbal order per Dr. Millan for pt to continue her home meds as prescribed.
--- NOTE | 2022-04-24 05:44 | EXP.ANES.II ---
[facility] Anesthesia Record Part II Anesthesia Record Part II Discharge Time: 12:38 Destination: Surgical Day Care (OP Surgery) PACU nurse assessment reviewed?: Yes Patient Condition:: Good Anesthesia Complications:: None Swallowing reflex intact?: Yes Cyanosis?: No Blood Pressure: 116/65 Pulse Rate: 97 Temperature: 97 F Mental Status: Alert & Oriented Pain level:: 0 Nausea and/or vomitting:: None Intake, IV Amount: 0
[2022-04-24 05:45] VITALS: BP 116/65; PULSE 97; TEMP 36.1
== END 2022-04-23 17:55 | disposition home or self-care (01) ==
PROVIDERS: PCP Internal Medicine Adolescent Medicine; Visit Provider Podiatrist
PROC: (CPT 28297; principal; 2022-04-23 10:45)
DX: M20.12 Hallux valgus (acquired), left foot (principal); M20.42 Other hammer toe(s) (acquired), left foot; M79.672 Pain in left foot; E55.9 Vitamin D deficiency, unspecified; Z79.899 Other long term (current) drug therapy; I10 Essential (primary) hypertension; E78.5 Hyperlipidemia, unspecified
CPT/HCPCS: 28297; 28730; 28272; 73620; 73630; 76000; 82962; 96374; C1713; C1776; J2405; Q4211

== ENCOUNTER → 2022-05-01 14:00 | Outpatient (CLI) | payer BC, OTHER, SELFPAY ==
--- NOTE | 2022-05-01 14:04 | US_ITS ---
PROCEDURE INFORMATION: Exam: US Left Breast, Complete MG Left Diagnostic Breast Tomosynthesis Exam date and time: 05/01/2022 2:08 PM Age: 46 years old Clinical indication: Patient recalled on the basis of a screening mammogram for further evaluation; Left breast; mass TECHNIQUE: Imaging protocol: Left Ultrasound of the breast with image documentation. All quadrants and retroareolar regions evaluated. Exam focused on the search and evaluation for abscess. Exam is an emergent request and a non-BIRADS study. Left Diagnostic tomosynthesis and 2D mammography including computer-aided detection (CAD) when performed. Unilateral or bilateral exam. COMPARISON: 1. MG MM DIG SCREENING MAMM BI W/CAD 03/24/2022 7:54 AM 2. MG MM DIG SCREENING MAMM BI W/CAD 11/07/2019 10:06 AM FINDINGS: MAMMOGRAPHY: Digital diagnostic spot compression views of the left breast and 90 degree lateral view of the left breast demonstrate dense coarsely nodular fibroglandular parenchyma without discrete suspicious mass lesion or asymmetry seen ULTRASOUND: Sonographic images of the left breast including the retroareolar region, all 4 quadrants and the axilla do not demonstrate any solid masses. Scattered cysts are present measuring up to 2.9 cm in the left 3 o'clock retroareolar region. No architectural distortion or acoustical shadowing. No skin thickening or axillary adenopathy. IMPRESSION: No mammographic or sonographic evidence of malignancy. Annual bilateral mammographic screening is recommended unless otherwise clinically indicated. ASSESSMENT: BI-RADS Category 2: Benign
== END ==
PROVIDERS: PCP Internal Medicine Adolescent Medicine; Visit Provider Nurse Practitioner Obstetrics & Gynecology
DX: N60.02 Solitary cyst of left breast (principal)
CPT/HCPCS: 76641; 77061; 77065; G0279

== ENCOUNTER → 2022-05-13 09:14 | Outpatient (POV) | payer BC, OTHER, SELFPAY | PROVIDERS: Visit Provider Dermatology | DX: Z00.00 Encounter for general adult medical examination without abnormal findings (principal) ==

== ENCOUNTER → 2022-05-15 09:54 | Outpatient (CLI) | payer BC, OTHER, SELFPAY ==
--- NOTE | 2022-05-15 10:08 | XR_ITS ---
FINAL REPORT CLINICAL HISTORY: Left foot post op x 3 wks COMPARISON: 04/23/2022 FINDINGS: AP, oblique and lateral views of the left foot were obtained. Plaster cast has been removed. There are postoperative changes of the tarsal and metatarsal joints and proximal phalanx of the great toe. Hardware is intact. There is no evidence of hardware complication. There is mild multi joint degenerative disease. There is no acute fracture. There is a lucency along the plantar aspect of the calcaneus which is unchanged and may be postsurgical. There is continued soft tissue edema. IMPRESSION: Postoperative and degenerative changes as above. Reviewed, Interpreted and Dictated by Jolene Rogers MD Transcribed by Anna Marie Beard Authenticated and . [facility]
== END ==
PROVIDERS: PCP Internal Medicine Adolescent Medicine; Visit Provider Podiatrist
DX: M77.52 Other enthesopathy of left foot and ankle (principal); G89.18 Other acute postprocedural pain
CPT/HCPCS: 73630

== ENCOUNTER → 2022-06-05 11:29 | Outpatient (CLI) | payer BC, OTHER, SELFPAY ==
[2022-06-05 12:10] LABS: Basophils # 0.1 K/mm3 (0-0.2); Eosinophils # 0.2 K/mm3 (0.0-0.4); Eosinophils % 3.1 % (0.1-12.0); Hematocrit 42.9 % (37.0-47.0); Lymphocytes # 3.1 K/mm3 (0.7-4.5); Lymphocytes % 39.5 % (10-50); Mean Corpuscular HGB Conc 32.7 g/dL (31.8-35.4); Mean Corpuscular Hemoglobin 30.2 pg (27.0-31.2); Mean Corpuscular Volume 92.4 fl (81-99); Mean Platelet Volume 8.6 fl (7.4-10.4); Monocytes # 0.8 K/mm3 (0.1-1.0); Monocytes % 9.8 % (1.7-9.3); Neutrophils # 3.6 K/mm3 (1.8-7.8); Neutrophils % 46.6 % (37.0-80.0); Platelet Count 288 K/mm3 (142-424); Red Blood Count 4.64 M/mm3 (4.20-5.40); White Blood Count 7.8 K/mm3 (4.8-10.8)
[2022-06-05 12:31] LABS: Alanine Aminotransferase 35 U/L (12-78); Albumin Level 4.5 g/dl (3.5-5.0); Albumin/Globulin Ratio 1.5 (1.1-1.8); Alkaline Phosphatase 126 U/L (38-126); Anion Gap 14.7 mEq/L (5-15); Aspartate Amino Transferase 32 U/L (14-36); Bilirubin,Total 0.3 mg/dl (0.2-1.3); Blood Urea Nitrogen 15 mg/dl (7-17); Calcium 9.8 mg/dl (8.4-10.2); Carbon Dioxide 30 mmol/L (22.0-30.0); Chloride 100 mmol/L (98-107); Estimated Glomerular Filt Rate 68 ml/min (>60); GFR (African American) 82 ML/MIN (>60); Glucose 97 mg/dl (74-100); Potassium 4.7 mmoL/L (3.5-5.1); Sodium 140 mmol/L (136-145); Total Protein,Serum 7.5 g/dl (6.3-8.2)
[2022-06-05 12:37] LABS: C-Reactive Protein 10.1 mg/L (0-4)
[2022-06-05 13:54] LABS: Erythrocyte Sedimentation Rate 45 mm/hr (0-20)
== END ==
PROVIDERS: PCP Internal Medicine Adolescent Medicine; Visit Provider Podiatrist
DX: T81.31XA Disruption of external operation (surgical) wound, not elsewhere classified, initial encounter (principal); T81.49XA Infection following a procedure, other surgical site, initial encounter
CPT/HCPCS: 36415; 80053; 85025; 85651; 86140; 87070; 87077; 87186; 87205

== ENCOUNTER → 2022-06-10 14:33 | Outpatient (CLI) | payer BC, OTHER, SELFPAY ==
--- NOTE | 2022-06-10 14:36 | XR_ITS ---
FINAL REPORT CLINICAL HISTORY: post op COMPARISON: 05/15/2022 FINDINGS: LEFT FOOT: Three views of the left foot were obtained. There are postoperative changes with multiple side plates and screws over the 1st proximal phalanx. These appear stable. Bony alignment is stable. There are mild degenerative changes. No acute fracture is seen. IMPRESSION: Stable postoperative changes with no acute bony abnormality. Reviewed, Interpreted and Dictated by Wang Gonzalez III, MD Transcribed by Vira Briceno Authenticated and [facility]
== END ==
PROVIDERS: PCP Internal Medicine Adolescent Medicine; Visit Provider Podiatrist
DX: M79.672 Pain in left foot (principal); G89.18 Other acute postprocedural pain; R60.9 Edema, unspecified
CPT/HCPCS: 73630

== ENCOUNTER → 2022-06-25 12:34 | Outpatient (CLI) | payer BC, OTHER, SELFPAY ==
[2022-06-25 12:52] LABS: Basophils # 0.1 K/mm3 (0-0.2); Basophils % 0.7 % (0.1-2.0); Eosinophils # 0.1 K/mm3 (0.0-0.4); Eosinophils % 1.7 % (0.1-12.0); Hematocrit 38.5 % (37.0-47.0); Hemoglobin 12.9 g/dL (12.2-16.2); Lymphocytes # 3.2 K/mm3 (0.7-4.5); Lymphocytes % 39.3 % (10-50); Mean Corpuscular HGB Conc 33.6 g/dL (31.8-35.4); Mean Corpuscular Hemoglobin 30.9 pg (27.0-31.2); Mean Corpuscular Volume 91.9 fl (81-99); Mean Platelet Volume 8.5 fl (7.4-10.4); Monocytes # 0.6 K/mm3 (0.1-1.0); Monocytes % 6.9 % (1.7-9.3); Neutrophils # 4.2 K/mm3 (1.8-7.8); Neutrophils % 51.4 % (37.0-80.0); Platelet Count 246 K/mm3 (142-424); Red Blood Count 4.19 M/mm3 (4.20-5.40); Red Cell Distribution Width 14.1 % (11.5-17.5); White Blood Count 8.1 K/mm3 (4.8-10.8)
[2022-06-25 13:09] LABS: Alanine Aminotransferase 36 U/L (12-78); Albumin Level 4.4 g/dl (3.5-5.0); Albumin/Globulin Ratio 1.6 (1.1-1.8); Alkaline Phosphatase 103 U/L (38-126); Anion Gap 19.8 mEq/L (5-15); Aspartate Amino Transferase 39 U/L (14-36); Bilirubin,Total 0.2 mg/dl (0.2-1.3); Blood Urea Nitrogen 10 mg/dl (7-17); Calcium 9.5 mg/dl (8.4-10.2); Carbon Dioxide 25 mmol/L (22.0-30.0); Chloride 97 mmol/L (98-107); Estimated Glomerular Filt Rate 78 ml/min (>60); GFR (African American) 94 ML/MIN (>60); Globulin 2.7 g/dL (1.3-3.2); Glucose 86 mg/dl (74-100); Potassium 3.8 mmoL/L (3.5-5.1); Sodium 138 mmol/L (136-145); Total Protein,Serum 7.1 g/dl (6.3-8.2)
[2022-06-25 13:14] LABS: C-Reactive Protein 3.4 mg/L (0-4)
[2022-06-25 13:38] LABS: Erythrocyte Sedimentation Rate 14 mm/hr (0-20)
== END ==
PROVIDERS: PCP Internal Medicine Adolescent Medicine; Visit Provider Podiatrist
DX: Z98.890 Other specified postprocedural states (principal)
CPT/HCPCS: 36415; 80053; 85025; 85651; 86140

== ENCOUNTER → 2022-07-10 08:20 | Outpatient (CLI) | payer BC, OTHER, SELFPAY ==
--- NOTE | 2022-07-10 08:28 | XR_ITS ---
FINAL REPORT CLINICAL HISTORY: post left foot surgery COMPARISON: 06/10/2022 FINDINGS: Left foot Three views were obtained. There are postoperative changes with screw plate and multiple screws. There is a staple in the 1st proximal phalanx. The bony alignment is stable. There are mild degenerative changes. IMPRESSION: Postsurgical changes as above. Reviewed, Interpreted and Dictated by Wang Gonzalez III, MD Transcribed by Jessica Laurent Authenticated and [facility]
== END ==
PROVIDERS: PCP Internal Medicine Adolescent Medicine; Visit Provider Podiatrist
DX: M79.672 Pain in left foot (principal); G89.18 Other acute postprocedural pain; Z98.890 Other specified postprocedural states
CPT/HCPCS: 73630

== ENCOUNTER 2022-09-05 11:00 | Outpatient (RCR) | payer BC, OTHER, SELFPAY ==
--- NOTE | 2022-07-21 11:39 | HMH.PTOPEV ---
PT Outpatient Evaluation Rehab PT Outpatient Evaluation Start: 07/21/22 10:49 Freq: Status: Active Protocol: Document 07/21/22 10:49 APARNA (Rec: 07/21/22 11:39 APARNA [id number]) E-signed By Saadia Chadwick, PT Outpatient Therapy Subjective History Subjective History Pt is a 46 y/o female who reports to PT s/p left lapidus bunionectomy, multiple tarsometatarsal joint fusion, 1st MPJ capsulotomy, Jean Marie osteotomy, calcaneal autograft bone harvest performed 04/23/22 . Pt reports she is currently FWB in the boot since her last f/u visit with Dr. Millan 07/10/22. Pt reports she had an infection in the foot 8-9 weeks post surgery. Pt reports she started taking an antibiotic but was unable to tolerate it due to stomach pain/UTI. Pt reports she then used a spray which cleared up the infection. Pt reports she still has an incision in the top of the big foot that is having a hard time closing up with a staple in place. Pt reports her main complaint following surgery is stiffness in the ankle and mid foot. Pt reports she gets brief throbbing pain in the big toe at random times but denies consistent pain. Pt reports constant n/t of the little toes and middle of the foot, states the only time this relieves is at night time. Pt also reports constant swelling of the entire foot that increases with activity. Pt states she also has right lateral hip pain which she was seeing PT for but had to put it on hold due to her ankle/ foot surgery, states she plans on resuming this soon. Occupation: [employer] - currently not working
--- NOTE | 2022-08-22 11:41 | HMH.RHREAS ---
Rehab Reassessment Rehab OP Re-assessment Start: 07/21/22 10:49 Freq: Status: Active Protocol: Document 08/22/22 10:35 [email or web address] (Rec: 08/22/22 11:41 APARNA [id number]) E-signed By Saadia Chadwick PT Rehab Re-assessment Subjective Subjective Pt reports she transitioned out of the walking boot to her regular tennis shoe ~2 weeks ago. Pt reports she continues to have some medial midfoot pain rated 2-3/10 at worst with prolonged walking, ramps and stairs. Pt reports paresthesia has improved since the surgery but she still has some tingling with increased swelling of the foot. Pt reports she feels about 50% improved since starting PT. Pt reports she was supposed to have a f/u appointment with Dr Anyi Millan yesterday but had to cancel due to family issues, states she plans on rescheduling today. Pt reports she recently moved to [place] and has to drive to her PT appointments so she can only come 1x/week from now on . Pt reports she is compliant with her HEP. Objective Objective Notes Edema: L figure 8 52 m L ankle AROM: inv 30, ev 20, PF 45, DF 15 L ankle MMT: DF 5/5, PF 5/5, Inv 4+/5, Eversion 4+/5 Gait: mildly antaglic FWB in tennis shoe Assessment Progress Assessment Progressing as Expected Assessment Notes Pt has attended 5 PT visits since the initial evaluation on 07/21/22. Treatment sessions have consisted of aerobic exercise, ankle/foot/toe mobility, LE stretching/ strengthening, balance/ proprioception training, manual therapy and modalities with good tolerance. Pt demonstrated improved L ankle AROM, strength, balance and
== END 2022-11-28 11:05 | disposition home or self-care (01) ==
LOC: PT 11:00
PROVIDERS: PCP Internal Medicine Adolescent Medicine; Visit Provider Podiatrist
DX: M79.672 Pain in left foot (principal); Z98.890 Other specified postprocedural states
CPT/HCPCS: 97014; 97016; 97035; 97110; 97112; 97140; 97163; 97164; 97530; G0283

== ENCOUNTER 2023-03-09 12:16 | Outpatient (CLI) | payer BC, SELFPAY ==
--- NOTE | 2023-03-09 12:27 | XR_ITS ---
FINAL REPORT CLINICAL HISTORY: Left foot Pain COMPARISON: 07/10/2022 FINDINGS: LEFT FOOT Three views of the left foot demonstrate sideplates and screws securing the first, second, and third tarsometatarsal joints. An orthopedic stable secures osteotomy defect in the proximal first proximal phalange. Hardware is intact. No acute fracture or dislocation. The visualized joint spaces are normally aligned. The soft tissues are unremarkable. IMPRESSION: Postoperative changes with intact hardware. No acute bony abnormality. Reviewed, Interpreted and Dictated by Rod Ho MD Transcribed by Anna Marie Beard Authenticated and [facility]
--- NOTE | 2023-03-09 12:27 | XR_ITS ---
FINAL REPORT CLINICAL HISTORY: Right foot Pain COMPARISON: 03/20/2022 FINDINGS: RIGHT FOOT 3 views of the right foot were obtained. There is no acute fracture or dislocation. Visualized joint spaces are normally aligned. Soft tissues are unremarkable. IMPRESSION: No acute bony abnormality. Reviewed, Interpreted and Dictated by Rod Ho MD Transcribed by Anna Marie Beard Authenticated and . [facility]
== END 2023-03-09 23:59 ==
LOC: RAD 12:18
PROVIDERS: PCP Internal Medicine Adolescent Medicine; Visit Provider Podiatrist
DX: M79.671 Pain in right foot (principal); M79.672 Pain in left foot
CPT/HCPCS: 73630

== ENCOUNTER 2023-06-16 08:25 | Outpatient (CLI) | payer OTHER, SELFPAY ==
--- NOTE | 2023-06-16 08:29 | XR_ITS ---
FINAL REPORT CLINICAL HISTORY: Left foot Pain COMPARISON: 03/09/2023 FINDINGS: Three views show no evidence of acute displaced fracture or dislocation of the visualized bony architecture. There are extensive postoperative changes in the medial midfoot and forefoot. The hardware is intact. The joint spaces appear normal. IMPRESSION: No acute findings. Reviewed, Interpreted and Dictated by Manjit Ramos MD Transcribed by Anna Marie Beard Authenticated and [facility]
== END 2023-06-16 23:59 | disposition home or self-care (01) ==
LOC: RAD 08:26
PROVIDERS: PCP Internal Medicine Adolescent Medicine; Visit Provider Podiatrist
DX: M79.672 Pain in left foot (principal)
CPT/HCPCS: 73630

== ENCOUNTER 2023-07-01 12:54 | Outpatient (CLI) | payer OTHER, SELFPAY ==
--- NOTE | 2023-07-01 13:06 | ECG_ITS ---
APPROVED REPORT Exam: Resting ECG HR:69 bpm ECG Measurements Heart Rate 69 AXES ID 135 P 27 QRSd 90 QRS 23 QT 371 T 21 QTc 391 Conclusion SINUS RHYTHM NONSPECIFIC ST & T-WAVE ABNORMALITY BORDERLINE ECG UNCONFIRMED REPORT Electronically signed by : Dewayne Jeffery MD 07/03/2023 12:25:13
--- NOTE | 2023-07-01 13:19 | CT_ITS ---
FINAL REPORT TECHNIQUE: Thin section axial CT images with coronal and sagittal reformats were performed. This study was performed with techniques to keep radiation doses as low as reasonably achievable (ALARA). Individualized dose reduction techniques using automated exposure control or adjustment of mA and/or kV according to the patient''s size were employed. CLINICAL HISTORY: Painful hardware surgery last year COMPARISON: None FINDINGS: There are postoperative changes in the first, second, and third tarsometatarsal joints with multiple screw plates and screws. Also noted are postoperative changes at the first proximal phalanx with a stable. No hardware complications identified on these images. There is no evidence of acute fracture. There is mild degenerative change. IMPRESSION: Postoperative and degenerative changes without acute process. Intact hardware. Reviewed, Interpreted and Dictated by Wang Gonzalez III, MD Transcribed by Anna Marie Beard Authenticated and [facility]
--- NOTE | 2023-07-01 13:47 | MM_ITS ---
PROCEDURE INFORMATION: Exam: MG Bilateral Screening 3D Mammography Exam date and time: 07/01/2023 1:33 PM Age: 47 years old Clinical indication: Screening mammogram TECHNIQUE: Imaging protocol: Bilateral Screening tomosynthesis and 2D mammography including computer-aided detection (CAD) when performed. COMPARISON: 1. MG MM DIG MAMM DX UNILAT LT CAD 05/01/2022 2:08 PM 2. MG MM DIG SCREENING MAMM BI W/CAD 03/24/2022 7:54 AM 3. MG MM DIG MAMM DX UNILAT RT CAD 06/13/2020 1:24 PM 4. MG MM DIG MAMM DX UNILAT RT CAD 06/04/2020 2:00 PM FINDINGS: MAMMOGRAPHY: Breast composition: The breast is heterogeneously dense, which may obscure small masses. Mass: None. Architectural distortion: No new or suspicious architectural distortion. Calcifications: No new or suspicious calcifications are present Asymmetric density: No new or suspicious asymmetric density is present Skin thickening: None. Axillary adenopathy: None. IMPRESSION: No mammographic evidence of malignancy. Recommend annual screening mammography unless otherwise clinically indicated. ASSESSMENT: BI-RADS category 1: Negative.
[2023-07-01 14:28] LABS: Alanine Aminotransferase 42 U/L (12-78); Albumin Level 4.2 g/dl (3.5-5.0); Albumin/Globulin Ratio 1.6 (1.1-1.8); Alkaline Phosphatase 99 U/L (38-126); Anion Gap 12.9 mEq/L (5-15); Aspartate Amino Transferase 44 U/L (14-36); Bilirubin,Total 0.4 mg/dl (0.2-1.3); Blood Urea Nitrogen 9 mg/dl (7-17); Calcium 9.8 mg/dl (8.4-10.2); Carbon Dioxide 29 mmol/L (22.0-30.0); Chloride 102 mmol/L (98-107); Estimated Glomerular Filt Rate 67 ml/min (>60); GFR (African American) 82 ML/MIN (>60); Globulin 2.7 g/dL (1.3-3.2); Glucose 87 mg/dl (74-100); Potassium 3.9 mmoL/L (3.5-5.1); Sodium 140 mmol/L (136-145); Total Protein,Serum 6.9 g/dl (6.3-8.2)
[2023-07-01 14:33] LABS: C-Reactive Protein 5.7 mg/L (0-4)
[2023-07-01 14:57] LABS: Thyroid Stimulating Hormone 1.33 uIU/mL (0.465-4.68)
[2023-07-01 15:32] LABS: Vitamin B12 346 pg/mL (239-931)
[2023-07-01 15:39] LABS: Folate 6.32 ng/mL
[2023-07-08 18:10] LABS: 1,25 Dihydroxy Vitamin D 41 pg/mL (.); 1,25-Dihydroxy, Vitamin D-2 18 pg/mL (.); 1,25-Dihydroxy, Vitamin D-3 23 pg/mL (.)
== END 2023-07-01 23:59 | disposition home or self-care (01) ==
PROVIDERS: PCP Internal Medicine Adolescent Medicine; Visit Provider Podiatrist
DX: Z01.818 Encounter for other preprocedural examination (principal); R60.9 Edema, unspecified; T84.84XA Pain due to internal orthopedic prosthetic devices, implants and grafts, initial encounter; Z12.31 Encounter for screening mammogram for malignant neoplasm of breast; M79.672 Pain in left foot
CPT/HCPCS: 36415; 73700; 77063; 77067; 80053; 82607; 82652; 82746; 84443; 86140; 93005

== ENCOUNTER 2023-07-29 09:59 | Day surgery (SDC) | payer OTHER, SELFPAY ==
[2023-07-21 09:59] VITALS: BMI 29.0
[2023-07-29] VITALS (11 sets, daily range): BP systolic 115–143; BP diastolic 66–84; PULSE 70–92; RESP 16–18; TEMP 36.4–43; O2SAT 94–100; BMI 29.0
[2023-07-29] MEDS: 0.9 % SODIUM CHLORIDE 1000ML 1,000 ML 25 ML IV (11:27)
--- NOTE | 2023-07-29 11:37 | XR_ITS ---
FINAL REPORT CLINICAL HISTORY: HARDWARE REMOVAL/HAMMER TOE LEFT FOOT FINDINGS: FLUOROSCOPY LESS THAN 1 HOUR HISTORY: Fluoroscopy guidance. FINDINGS: Fluoroscopic guidance was provided for hardware removal left foot. A single spot film was obtained. A total of 54 seconds of fluoroscopy time were used. DAP: 0.94 mGy IMPRESSION: As above. Reviewed, Interpreted and Dictated by Wang Gonzalez III, MD Transcribed by Anna Marie Beard Authenticated and . [facility]
[2023-07-29 11:38] LABS: Cholesterol 198 mg/dl (140-200); Triglycerides 243 mg/dl (30-150); VLDL Cholesterol 49 mg/dL (0-40)
[2023-07-29 11:39] LABS: Chol/HDL Ratio 5.5 (1-3.5); HDL Cholesterol 36 mg/dl (40-60)
[2023-07-29 11:51] LABS: Direct LDL Cholesterol 80.29 mg/dL (100-129)
[2023-07-29] MEDS: CEFAZOLIN 2GM VIAL 2 GM (12:01)
--- NOTE | 2023-07-29 12:30 | EXP.ANES.CKL ---
[facility] Disclaimer: The information contained in this section may have been updated after the patient was seen, as this information can be updated by other users. Medical History Scott's palsy Ovarian cyst Tonsillectomy planned Urinary tract infection History of COVID-19 Asthma Endometriosis Sinus headache Irritable bowel syndrome (IBS) History of gastroesophageal reflux (GERD) Allergies Hypertension Surgical History History of esophagogastroduodenoscopy (EGD) History of cholecystectomy History of ear surgery X2 History of partial hysterectomy Family History Father Melanoma Throat cancer Heart disease Mother Heart disease Other Hyperlipidemia Hypertension Social History (Updated 07/29/23 @ 11:27 by Divine Green RN) Smoking Status: Former smoker tobacco type: cigarettes years smoked: 28 how long ago did patient quit smokin02/16/2018 alcohol intake: never substance use type: denies use current occupational status: unemployed Travel in the last 8 weeks: None household members: family housing: house current occupation: ASSISTANT MANAGER PT caffeine: Yes [facility] Anesthesia Checklist Patient Identification Patient Identification: Arm Band Structural Data Admitted From: Home Planned Operative Procedure/s: Left Metatarsal Osteotomy, Hammertoe Repair, Tendon Lengthening Consent for Planned Operative Procedure(s) Verified: Yes Verified Documents: Surgical Consent and History and Physical NPO Status Verified Time NPO: 00:00 Additional verifications Anesthesia Reactions: No Hx Blood Transfusions: No Blood Transfusion Reaction: No Airway Assessment Mallampati Score:: Class II C-Spine Mobility Assessed: Yes TMJ Mobility Assessed: Yes Dentition: Dentures-good fit (Pt stated that she would like to keep her dentures in during procedure. Risks of denture damage/dislodgement discussed with pt and she verbalized understanding) Anesthesia Plan Anesthesia Risk discussed: Yes Anesthesia Plan: Verified ASA Class: II Anesthesia Type: General w/block (Left Popliteal/Adductor Canal Nerve Block. Risks/benefits of nerve block explained. Pt verbalized understanding)
[2023-07-29] MEDS: GENTAMICIN 80 MG/2 ML VIAL (13:00)
--- NOTE | 2023-07-29 14:23 | SUR.OPER ---
Family updated at 1238 and 1344.
--- NOTE | 2023-07-29 14:55 | SUR.OPER ---
Family updated at 1452.
--- NOTE | 2023-07-29 15:00 | XR_ITS ---
FINAL REPORT CLINICAL HISTORY: s/p left foot HWR, HT2-5, met osteotomy COMPARISON: 06/16/2023 FINDINGS: LEFT FOOT Three views of the left foot demonstrate interval removal of screw plate and screws in the 1st, 2nd, and 3rd tarsometatarsal regions. There are new screws in the head of the 2nd metatarsal. New wires are noted in the 1st through 5th digits. Splint obscures some of the detail. There is no acute fracture or dislocation. The visualized joint spaces are normally aligned. The soft tissues are unremarkable. IMPRESSION: Interval removal and placement of hardware as above. Reviewed, Interpreted and Dictated by Wang Gonzalez III, MD Transcribed by Anna Marie Beard Authenticated and [facility]
--- NOTE | 2023-07-29 15:05 | SUR.OPER ---
1452: made aware of 90 minute time on tourniquet. 15 more minutes added at this time.
--- NOTE | 2023-07-29 15:07 | SUR.OPER ---
1507: made aware of i hour 45 minute time on tourniquet. MD requested 15 minutes be added at this time.
--- NOTE | 2023-07-29 15:33 | P.PNANES_ITS ---
[facility] Anesthesia Record Part I Anesthesia Record I Intake, IV Amount: 1,400 Hydration: Adequate Estimated blood loss (mL): 5 Urine output (mL): 0 Blood Products used (#): none Blood Pressure: 116/68 SaO2: 96 Pulse Rate: 82 Airway Patency: Patent Respiratory Rate: 16 Temperature: 98.3 F Patient is:: Drowsy and Stable Stable to PACU at:: 15:30
--- NOTE | 2023-07-29 15:39 | EXP.OP.NOTE ---
Date of procedure: 07/29/23 Pre-op Diagnosis:: Retained painful hardware Left foot metatarsalgia Left foot hammertoes 2-5 Left 1st MTJ contracture Scar contracture Nerve entrapment Callus sub 2nd met Post-op Diagnosis:: Same Procedure performed:: Left 2nd metatarsal osteotomy (Jane) (61672) hammertoes repair digits 2-4 (98385), partial resection phalanx digit 5 (43821) 1-3rd MPJ capulotomy (32950) tendon lengthening/open extensor tenotomy x2 (57961) scar contracture release/skin plasty nerve decompression (92556) hardware removal (1st proximal phalanx staple, midfoot plates/screws) callus debridement x 1 Surgeon:: Katerina Millan DPM [employer]DRA[employer]IC [employer]ATING MACHINE OPERATOR:: Tuan Ritchie Anesthesia: GETA and regional (left popliteal block) Estimated blood loss (mL): 30 Clinical Note:: Patient is a 47-year-old female who presents for surgical planning for left foot hammertoes. She had surgery 04/23/22 for left lapidus bunionectomy, multiple tarsometatarsal joint fusion, 1st MPJ capsulotomy, Jean Marie osteotomy, calcaneal autograft bone harvest. DEXA scan reviewed and showed osteopenia. New x-rays and CT reviewed. We had previously discussed hammertoe repair surgery. At the time of first surgery, patient was asymptomatic. Now that she has had her other surgery and her big toe is straight and stable she is putting more pressure on the second ray. Her 1-3rd hammertoes do not purchase the ground. We discussed doing hardware removal with nerve decompression, second metatarsal osteotomy with hammertoe repairs 2?5, possible scar release/skin plasty and 1st MTPJ capsulotomy. We discussed conservative versus surgical treatment options. Patient has tried and failed conservative care including: Modification of shoe gear, modification of activity, wider shoes, splints, toe spacers, topical anti-inflammatories, oral NSAIDs, compounding nerve pain cream, forma PT, compression therapy, met pads, fracture boot immobilization and still has pain and worsening symptoms. She is now struggling to get through her daily activities. Previously, explained to the patient and recommended for her: possible lateral release, hammertoe repair and possible MPJ release for tendo capsular balancing, and gastrocnemius recession. The patient has been instructed on the planned procedure, all risk versus benefits of the procedure to include bleeding, infection, nerve and blood vessel damage, need for further surgery, delay in healing of soft tissue or bone, failure of bones to heal, non-union, mal-union, prolonged pain and recovery, prolonged swelling, CRPS/RSD, DVT/PE and anesthetic complications including . Also discussed increased risk of skin/scar formation, wound healing due to revisional surgery and history of wound dehiscence. No guarantees were given. All questions fully answered. The patient verbalized understanding and agreed to proceed with surgery. Consent obtained. Operative findings:: Left foot previous Lapiplasty and adductoplasty surgery with retained plates and screws to the 1-3rd tarsometatarsal joints. Plates and screws removed without complication. The arthrodesis sites were healed with no evidence of nonunion, fracture or infection. Second metatarsal was elongated with a subsecond metatarsal callus. Jane osteotomy performed shortening the second metatarsal. Significant contracture to the second and third MTPJ's reduced with MPJ release/capsulotomy. Rigid second PIPJ contracture. Semireducible PIPJ contracture to digits 3-4, adductovarus rotation curly fifth toe. The proximal phalanx bones themselves were quite small in size and the bone quality was poor such that an implant would not hold so smooth K wires were utilized instead. First MTPJ contracture. Some medial dorsal cutaneous nerve entrapment noted. The Jean Marie staple was intact, osteotomy site healed. Staple was left intact. Some spurring noted to the lateral base of the proximal phalanx. Modifier: This case took 1 hour longer than normal due to significant scar tissue, nerve entrapment and revising previous skin incisions. The bone quality was poor necessitating the use of smooth K wires instead of a planned toe implant. Due to significant scar contracture and a skin plasty been performed, decision made to pin the hallux to prevent recontracture of the scar tissue while it heals. An amniotic graft was utilized into the incisions to help prevent tissue adhesions, nerve impingement and scar contracture. Operative note:: On this date and time patient was deemed an appropriate surgical candidate. With informed consent signed, the patient was taken to the operating theater after anesthesia performed regional nerve block. The patient was positioned supine. General anesthesia was induced. Tourniquet was applied to the left mid-calf. IV Ancef given. Left lower extremity was prepped and draped in normal sterile fashion. Left foot hardware removal, nerve decompression: Incision was mapped out over the dorsal medial and dorsal lateral foot over prior healed surgical scars. Dissection full-thickness with care to maintain surgical hemostasis is able to track neurovascular structures. The medial dorsal cutaneous nerve was entrapped in the medial scar tissue. It was released. The 4 plates and screws were removed without complication and sent to pathology as gross specimen. No deep signs of infection noted. Incisions flushed with gentamicin irrigation. Vicryl used to reapproximate deep tissue. Nylon used to reapproximate skin. Due to history of scar contracture and wound dehiscence after the index procedure, a piece of amniotic graft was inserted under the skin prior to skin closure and a Bartolome guard was inserted across the dorsal medial incision to help prevent wound dehiscence. Left 1st MTPJ capsulotomy, skin plasty: Scar contracture noted to the 1st MTPJ. Incision made over prior Jean Marie osteotomy site. A wedge was taken out of this incision in order to derotate the hallux dorsal medially. The Jean Marie staple was intact and not removed. Spurring removed resected with a rongeur from the lateral aspect of the base of the proximal phalanx. Scar tissue debrided with 15 blade and forceps. The MPJ capsule was released, McGlamry elevator passed under the joint and scar contracture and adhesions were released. Wound flushed with saline. Medial capsulorrhaphy performed and repaired with Vicryl. Due to the significant amount of scar contracture from the prior surgery, decision was made to insert a 0.062 smooth K wire through the tip of the toe and retrograded back into the met head to allow for tissue healing. A piece of amniotic tissue was applied over the nerve prior to skin closure/derotational skin plasty to prevent tissue adhesion over staple and scar contracture. Left Jane osteotomy, 2nd MPJ release/capsulotomy: A linear incision was mapped out from the 2nd PIPJ extending over the MTPJ. Full-thickness dissection with care to maintain surgical hemostasis to safely track neurovascular structures. Significant contracture of the extensor tendon noted. MPJ release capsulotomy performed. McGlamery elevator was used to pass under the met releasing scar contracture. A saw was used to make an oblique osteotomy at the second met head and shift the head proximally. Site was temporarily fixated with a 0.045 K wire. Intraoperative fluoroscopy was used to confirm osteotomy and temporary fixation. Adequate reduction of the elongated second ray noted. In standard technique a 2.0 mm snap off screw was inserted x 2 without complication. Position confirmed under fluoroscopy. Deep tissue repaired with Vicryl. Left 3rd MPJ release/capsulotomy: Separate incision was made over the third MPJ full-thickness down to the level of the joint. MPJ release capsulotomy performed. McGlamery elevator was used to pass under the metatarsals releasing scar contracture. Left 2-4th hammertoe repair (PIPJ AD): Tourniquet inflated at 225mmHg. Attention was directed to the toes, where a dorsal linear incision was mapped out over the PIPJ. Transverse tenotomy performed at the PIPJ, with release of the medial and lateral collateral ligaments. The head of the proximal and base of the middle phalanx was removed, exposing good cancellous bone. Utilizing standard technique, the digit was fixed with a 0.062 and 0.045mm smooth K-wire due to poor bone quality. Due to the extent of the extensor tendon contracture prior to tendon repair the 2-3rd extensor tendons were lengthened in a Z fashion. Left 5th Digit PIPJ AP: Attention was directed to toe, where a transverse tenotomy performed at the PIPJ, with release of the medial and lateral collateral ligaments. The head of the proximal phalanx was removed. Utilizing standard technique, the digit was fixed with a 0.045mm smooth K-wire due to poor bone quality. IntraOp fluoroscopy utilized to confirm position of K wires which were intact with adequate reduction of the toe deformities. Wounds flushed with copious amounts of saline. The tendon was repaired with 3-0 Vicryl. All old subcutaneous tissue repaired with Vicryl and Nylon was used to close skin in an interrupted mattress and simple suture fashion. Skin cleansed. Left sub second metatarsal callus debridement: 15 blade was used to debride the callus without complication. No underlying ulcer noted skin was cleansed. The tourniquet was deflated after 110 mins and immediate hyperemic response was noted to the digits. The wounds were cleansed. Xeroform, dry sterile dressing was then applied to the left foot. A well-padded below-knee posterior splint was then applied. The patient was awoken from anesthesia and transferred to recovery with vital signs stable and neurovascular status intact. Patient appeared to tolerate procedure and anesthesia well without complication. Materials: [employer] 2.0mm snap off screw x 2, 0.062mm smooth K wire x2 and 0.045 mm smooth K-wire x3, [employer] amniotic graft x 1 (4x4cm) Discharge/Plan: D/C home today when ready and vital signs stable. Patient is to maintain dressing clean dry and intact. Ice to the top of the foot and elevate on two pillows. Non weight bearing to the left lower extremity with DME assistance (crutches, rolling knee scooter). Obtain post op films, left foot, 3 views. Follow up in one week. Tourniquet time (min): 110 Condition: stable Disposition: same day Specimens:: Left plates/screws Complications:: None
--- NOTE | 2023-07-30 09:32 | P.PNANES_ITS ---
[facility] Anesthesia Record Part II Anesthesia Record Part II Discharge Time: 16:00 Destination: Surgical Day Care (OP Surgery) PACU nurse assessment reviewed?: Yes Patient Condition:: Good Anesthesia Complications:: None Swallowing reflex intact?: Yes Airway Patency: Patent Cyanosis?: No Blood Pressure: 131/84 SaO2: 94 Respiratory Rate: 16 Pulse Rate: 81 Temperature: 98.4 F Mental Status: Alert & Oriented Pain level:: 0 Nausea and/or vomitting:: None Intake, IV Amount: 0 Hydration: Adequate
[2023-07-30 09:33] VITALS: BP 131/84; PULSE 81; RESP 16; TEMP 36.9; O2SAT 94
[2023-07-30 10:13] LABS: HBsAg Screen Negative (Negative); HCV Ab Non Reactive (Non Reactive); Hep A Ab, IGM Negative (Negative); Hep B Core Ab, IgM Negative (Negative)
== END 2023-07-29 16:40 | disposition home or self-care (01) ==
PROVIDERS: Nurse Practitioner Family; PCP Internal Medicine Adolescent Medicine; Visit Provider Podiatrist
PROC: (CPT 28285; principal; 2023-07-29 11:30)
DX: M20.42 Other hammer toe(s) (acquired), left foot (principal); M77.42 Metatarsalgia, left foot; M20.5X2 Other deformities of toe(s) (acquired), left foot; T84.84XA Pain due to internal orthopedic prosthetic devices, implants and grafts, initial encounter; G58.8 Other specified mononeuropathies
CPT/HCPCS: 28285; 20680; 28308; 28234; 64704; 73620; 73630; 76000; 80061; 80074; 96374; C1713; J0690; J1100; J1580; J2250; J3010

== ENCOUNTER 2023-08-27 07:00 | Outpatient (CLI) | payer OTHER, SELFPAY ==
--- NOTE | 2023-08-27 07:08 | XR_ITS ---
FINAL REPORT CLINICAL HISTORY: Postoperative FINDINGS: Left foot Three views were obtained. There are postoperative changes of the 1st through 5th digits and 1st and 2nd metatarsophalangeal joints. The hardware is stable. The bony alignment is stable. There are moderate degenerative changes of the midfoot. IMPRESSION: Stable postoperative changes. Reviewed, Interpreted and Dictated by Wang Gonzalez III, MD Transcribed by Jessica Laurent Authenticated and . [facility]
== END 2023-08-27 23:59 | disposition home or self-care (01) ==
LOC: RAD 07:01
PROVIDERS: PCP Internal Medicine Adolescent Medicine; Visit Provider Podiatrist
DX: M79.672 Pain in left foot (principal)
CPT/HCPCS: 73630

== ENCOUNTER 2023-09-10 07:13 | Outpatient (CLI) | payer OTHER, SELFPAY ==
--- NOTE | 2023-09-10 07:18 | XR_ITS ---
FINAL REPORT CLINICAL HISTORY: L foot post-op COMPARISON: 08/27/2023 FINDINGS: Three views of the left foot show interval removal of multiple pins from the digits. There are postoperative changes in the DIP joints, first proximal phalanx, and second metatarsal head. There is no acute fracture. Chronic degenerative changes are noted. IMPRESSION: Hardware removal without significant change otherwise. Reviewed, Interpreted and Dictated by Manjit Ramos MD Transcribed by Anna Marie Beard Authenticated and [facility]
== END 2023-09-10 23:59 | disposition home or self-care (01) ==
LOC: RAD 07:14
PROVIDERS: PCP Internal Medicine Adolescent Medicine; Visit Provider Podiatrist
DX: Z98.890 Other specified postprocedural states (principal); R60.9 Edema, unspecified
CPT/HCPCS: 73630

== ENCOUNTER 2023-09-25 10:00 | Outpatient (RCR) | payer OTHER, SELFPAY ==
--- NOTE | 2023-09-16 09:04 | HMH.PTOPWND ---
Rehab Outpt Wound Evaluation Rehab OP Wound Evaluation Start: 09/16/23 08:13 Freq: Status: Active Protocol: Document 09/16/23 08:45 JOAN (Rec: 09/16/23 09:00 JOAN [id number]) E-signed By Hector Cleveland, PT Subjective/History History History This is the initial PT eval for Esperanza Perla, 47 yowf who presents with c/o increased edema in her L foot after surgery. She reports initial surgery was performed ~ 1 yr ago with L bunionectomy and hammer toe reconstruction on toes 2-4, and now she had a revision of the L foot surgery with hardware removal. She reports minimal pain, but some instances of sharp shooting pain which is worse at night. She reports PMH of partial hysterectomy, CCY, 4 laproscopies, and her first L foot surgery was complicated by a post-op infection. Subjective Subjective Pain currently 0/10 in L foot, at worst 4/10. Minimal palpable edema at this time without pitting. No current TTP, 0/4. Moderate erythema to L 2nd toe. New diagnosis of cancer in past 12 No months? Lymphedema Eval Classification of Lymphedema Secondary Lymphedema Yes Post-Surgical Lymphedema Yes Stemmer's sign Stemmer's Sign yes Stage of Lymphedema Lymphedema stages Stage 0 (subjective c/o heaviness and aching) Skin Changes Dry Skin Yes Skin Folds Yes Redness Yes Other Changes Yes Pain Scale Pain Scale (0-10) 4 Affected Extremities Areas Affected by Lymphedema/Edema Left Lower Extremity Lower Extremity Measurements Left MTP Measurement (cm) 20.3 Heel Measurement (cm) 29.0 10 cm Proximal to Lateral Malleoli 21.0 Measurement (cm) 20 cm Proximal to Lateral Malleoli 0 Measurement (cm) 30 cm Proximal to Lateral Malleoli 0 Measurement (cm) 40 cm Proximal to Lateral Malleoli 0 Measurement (cm) 50 cm Proximal to Lateral Malleoli 0 Measurement (cm) 60 cm Proximal to Lateral Malleoli 0 Measurement (cm) Lower Extremity Measurement Total (cm) 70.3 Manual Lymphatic Drainage Treatment Area MLD Treatment Area Left Lower Extremity Wound Problems/Impairments Impairments Problems/Impairmments Increased Edema,Lymphedema Present,Subjective C/O Pain, Impaired Self Care/Self Management Prognosis Rehab Potential Good Comment Skilled therapy is needed to improve overall edema of the L foot and increase functional L LE mobility to return pt to PLOF. Clinical Impression Consistent with Diagnosis Yes Short Term Goals Number of Weeks 2 Decrease Edema Yes: no palpable edema L foot Patient to Understand Lymphedema Yes Treatment and Exercises Decrease Girth Measurments by (cm) Yes: L LE total by 1 cm Chicken Stuffer Goals Number of Weeks 4 Decrease Lymphedema Yes: No fibrotic edema noted to L foot or toes with normal gait. Decrease Subjective C/O Pain Yes: 0/10 L LE Patient to be Ind w/ HEP Yes Patient to Adhere Lymphedema Precautions Yes Decrease Girth Measurments by (cm) Yes: L LE total by 2 cm Outpatient Therapy Plan of Care Treatment Plan May Include Therapeutic Exercise Including Home Yes Exercise Program Manual Therapy Techniques Yes Neuromuscular Re-education Yes Therapeutic Activities to Return to Yes Previous Functional/Work Level ADL/Self Care Education Yes Orthotics/Bracing/Splinting Yes Manual Lymphatic Drainage Yes Eval/Re-Eval Yes Aquatic Therapy Yes Frequency Times per week 1 Duration Number of Weeks 3-4 Addendums This patient is a candidate for social No or vocational rehab? Patient/Guardian verbally acknowledges Yes understanding of treatment program and consents to further treatment? Patient/Guardian verbally acknowledges Yes understanding of diagnosis, prognosis and goals for treatment? Eval Complexity PT Charges 40347 - High Complexity PHYSICIAN CERTIFICATION: I certify the specified therapy services for Esperanza Perla are required, authorized, and reviewed every 30 days.
== END 2023-09-25 10:05 | disposition home or self-care (01) ==
LOC: PT 10:00
PROVIDERS: Visit Provider Podiatrist
DX: R60.9 Edema, unspecified (principal); T81.49XA Infection following a procedure, other surgical site, initial encounter; Z98.890 Other specified postprocedural states
CPT/HCPCS: 97110; 97163

== ENCOUNTER 2023-10-08 07:08 | Outpatient (CLI) | payer OTHER, SELFPAY ==
--- NOTE | 2023-10-08 07:10 | XR_ITS ---
FINAL REPORT CLINICAL HISTORY: Foot Pain, recent foot surgery, COMPARISON: 09/10/2023 FINDINGS: LEFT FOOT Three views of the left foot demonstrate no acute fracture or dislocation. An orthopedic staple is noted in the first proximal phalange. There are 2 screws in the head of the second metatarsal. Postoperative changes are noted from prior fusion of the first and second tarsometatarsal joints. On the lateral view, there is a 1.2 cm os trigonum. The visualized joint spaces are normally aligned. The soft tissues are unremarkable. IMPRESSION: Postoperative changes without acute process. Reviewed, Interpreted and Dictated by Rod Ho MD Transcribed by Anna Marie Beard Authenticated and [facility]
== END 2023-10-08 23:59 | disposition home or self-care (01) ==
LOC: RAD 07:08
PROVIDERS: PCP Internal Medicine Adolescent Medicine; Visit Provider Podiatrist
DX: M79.672 Pain in left foot (principal)
CPT/HCPCS: 73630

== ENCOUNTER 2023-11-09 14:34 | Outpatient (CLI) | payer OTHER, SELFPAY ==
--- NOTE | 2023-11-09 14:40 | XR_ITS ---
FINAL REPORT CLINICAL HISTORY: post operative left foot FINDINGS: LEFT ANKLE 3 views were obtained. There is no acute fracture. There are postoperative changes in the 2nd through 5th PIP joints. Postoperative changes are seen at the second metatarsal head and the first proximal phalanx. There are lucencies at the first metatarsal base. There are postoperative changes with probable ankylosis of the medial midfoot. IMPRESSION: Extensive postoperative changes without acute findings. Reviewed, Interpreted and Dictated by Manjit Ramos MD Transcribed by Vira Briceno Authenticated and [facility]
== END 2023-11-09 23:59 | disposition home or self-care (01) ==
LOC: RAD 14:35
PROVIDERS: PCP Internal Medicine Adolescent Medicine; Visit Provider Podiatrist
DX: G89.18 Other acute postprocedural pain (principal); Z98.890 Other specified postprocedural states
CPT/HCPCS: 73630

== ENCOUNTER 2024-10-02 10:27 | Outpatient (CLI) | payer OTHER, SELFPAY ==
[2024-10-02 20:17] LABS: Influenza A, PCR Not Detected (NotDetected); Influenza B, PCR Not Detected (NotDetected)
[2024-10-03 07:58] LABS: Coronavirus 19, PCR Detected (NotDetected)
== END 2024-10-02 23:59 | disposition home or self-care (01) ==
LOC: LAB.DROPOF 10-04 10:28
PROVIDERS: PCP Internal Medicine Adolescent Medicine; Visit Provider Nurse Practitioner Family
DX: J02.9 Acute pharyngitis, unspecified (principal)
CPT/HCPCS: 87631